=== PATIENT | male | born 1995 | race Caucasian/White ===

== ENCOUNTER 2019-08-11 09:46 | Emergency (ER) | payer OTHER, SELFPAY ==
[2019-08-11 09:52] VITALS: BP 158/86; PULSE 98; RESP 18; TEMP 37.3; O2SAT 99
--- NOTE | 2019-08-11 10:28 | ED.GENADULT ---
HPI - General Adult General Chief complaint: Unspecified Stated complaint: swollen uuvula x3 weeks Time Seen by Provider: 08/11/19 09:56 Source: patient Mode of arrival: ambulatory Limitations: no limitations History of Present Illness HPI narrative: Patient is a 24-year-old male who presents to emergency department for evaluation of sore throat for the last 3 weeks has been managed by primary care for this was given antibiotics with no improvement which she finished and is now on a steroid Dosepak. Patient notes aching pain in the throat worse with swallowing also notes some congestion and rhinorrhea. Patient denies fever nausea vomiting diarrhea presents in no distress Related Data Home Medications Medication Instructions Recorded Confirmed methylprednisolone mg 08/11/19 Allergies Allergy/AdvReac Type Severity Reaction Status Date / Time Penicillins Allergy Mild Unknown Verified 08/11/19 09:57 Review of Systems Review of Systems: All systems reviewed & are unremarkable except as noted in HPI and below PMFSH Past Medical History Medical History Patient denies significant medical history Social History Social History Smoking status: Current every day smoker Gender identity (if verbalized by the patient): Male Exam Narrative: Exam Narrative: GENERAL: Well-appearing, well-nourished, and in no acute distress. HEAD: Normocephalic, atraumatic. EYES: PERRLA and EOMI. ENT: Nares clear, no rhinorrhea or epistaxis. Mucous membranes moist. Oropharynx with tonsillar hypertrophy and exudate no exudate or other lesions. Uvula midline no trismus or drooling NECK: Supple. No adenopathy or masses. CHEST: Clear to auscultation. No respiratory distress. No wheezes rales or rhonchi HEART: Regular rate and rhythm. No murmur heard. EXTREMITIES: Normal range of motion. No edema. SKIN: Warm, dry, no rash. NEURO: No focal deficits. Alert and oriented x3. Cranial nerves II through XII grossly intact PSYCH: Normal mood and affect. Course Course Emergency Course: Patient in the room in no distress aware of case findings treatment plan and diagnosis agreeing to follow-up as directed or to return if symptoms worsen or concerns Vital Signs Vital signs: Vital Signs Temperature 99.2 F 08/11/19 09:52 Pulse Rate 98 08/11/19 09:52 Respiratory Rate 18 08/11/19 09:52 Blood Pressure 158/86 H 08/11/19 09:52 Pulse Oximetry 99 08/11/19 09:52 Temperature 99.2 F 08/11/19 09:52 Pulse Rate 98 08/11/19 09:52 Respiratory Rate 18 08/11/19 09:52 Blood Pressure 158/86 H 08/11/19 09:52 Pulse Oximetry 99 08/11/19 09:52 Medical Decision Making MDM Narrative Medical decision making narrative: Patient with pharyngitis negative strep with culture ordered will be referred to ENT for further evaluation Vital Signs Vital Signs: Vital Signs Temperature 99.2 F 08/11/19 09:52 Pulse Rate 98 08/11/19 09:52 Respiratory Rate 18 08/11/19 09:52 Blood Pressure 158/86 H 08/11/19 09:52 Pulse Oximetry 99 08/11/19 09:52 Temperature 99.2 F 08/11/19 09:52 Pulse Rate 98 08/11/19 09:52 Respiratory Rate 18 08/11/19 09:52 Blood Pressure 158/86 H 08/11/19 09:52 Pulse Oximetry 99 08/11/19 09:52 Lab Data Labs: Strep Screen Presumptive Negative *(Reference Range: Negative)* Discharge Plan Discharge Clinical Impression: Pharyngitis Patient Disposition: Home, Self-Care Condition: Stable Instructions: Antibiotic Form, Pharyngitis (ED) Additional Instructions: Follow up with your primary care provider within 1-2 days. Go to ER for shortness of breath, difficulty breathing, chest pain, fever/chills, weakness, nauseau/vomitting, unable to swallow or open the mouth etc. or any other concerns. Stay well-hydrated Take any prescribed medicatio
[2019-08-11] MEDS: KETOROLAC (*BKC) 60 MG/2 ML VIAL IM (10:30)
== END 2019-08-11 10:55 | disposition home or self-care (01) ==
PROVIDERS: Emergency Provider Emergency Medicine; PCP Emergency Medicine
DX: J02.9 Acute pharyngitis, unspecified (principal); F17.200 Nicotine dependence, unspecified, uncomplicated
CPT/HCPCS: 87081; 87880; 96372; 99283; J1885

== ENCOUNTER 2019-09-24 09:53 | Emergency (ER) | payer OTHER, SELFPAY ==
[2019-09-24 10:06] VITALS: BP 137/84; PULSE 84; RESP 16; TEMP 36.7; O2SAT 98
--- NOTE | 2019-09-24 11:02 | ED.GENADULT ---
HPI - General Adult General Chief complaint: Eye Problems Stated complaint: pos pink eye Time Seen by Provider: 09/24/19 10:52 Source: patient and RN notes reviewed Mode of arrival: ambulatory Limitations: no limitations History of Present Illness HPI narrative: Patient presents today complaining of bilateral eye redness, watering, and burning x3 days and has been worsening since onset. Girlfriend with similar symptoms prior to patient developing symptoms. Denies purulent drainage. Denies photophobia or vision changes. He has been using his girlfriend's sulfacetamide drops and states symptoms continue to worsen. Report that his girlfriend's symptoms are not improving with the drops either. MD complaint: eye redness and watering. Related Data Allergies Allergy/AdvReac Type Severity Reaction Status Date / Time Penicillins Allergy Mild Unknown Verified 08/11/19 09:57 Review of Systems Review of Systems: Narrative: CONSTITUTIONAL: Denies body aches, fever, chills, or sweats. EYES: + Eye redness, burning, and watering ENT: Denies rhinorrhea, congestion, sore throat, or otalgia. CARDIOVASCULAR: Denies chest pain, palpitations, or edema. RESPIRATORY: Denies cough or dyspnea. GASTROINTESTINAL: Denies abdominal pain, nausea, vomiting, or diarrhea. GENITOURINARY: Denies dysuria or hematuria. SKIN: Denies rash, itching, or wounds. MUSCULOSKELETAL: Denies back pain, joint pain, or myalgia. NEUROLOGIC: Denies headache, numbness, tingling, or weakness. PSYCH: Denies depression or anxiety. PMFSH Social History Social History Smoking status: Current every day smoker Gender identity (if verbalized by the patient): Male Comments At time of signature, I have reviewed and agree with nursing past medical, surgical, social and family history unless otherwise noted. Please see nursing chart for further information. There is no relevant family history pertinent to the presenting complaint Exam Narrative: Exam Narrative: GENERAL: Well-appearing, well-nourished, and in no acute distress. HEAD: Normocephalic, atraumatic. EYES: EOMI. PERRL. Severely injected conjunctiva bilaterally with increased tearing. Lids and lashes normal. ENT: Mucous membranes pink and moist. NECK: Normal AROM. Supple. No lymphadenopathy. CHEST: No respiratory distress. EXTREMITIES: Normal range of motion. No edema. SKIN: Warm, dry, no rash. Capillary refill normal. Normal skin turgor. NEURO: No focal deficits. Alert and oriented x3. Gait steady. PSYCH: Normal affect. No signs of depression or anxiety. Course Vital Signs Vital signs: Vital Signs Temperature 98.0 F 09/24/19 10:06 Pulse Rate 84 09/24/19 10:06 Respiratory Rate 16 09/24/19 10:06 Blood Pressure 137/84 09/24/19 10:06 Pulse Oximetry 98 09/24/19 10:06 Temperature 98.0 F 09/24/19 10:06 Pulse Rate 84 09/24/19 10:06 Respiratory Rate 16 09/24/19 10:06 Blood Pressure 137/84 09/24/19 10:06 Pulse Oximetry 98 09/24/19 10:06 Reviewed. Pt has been instructed to follow up with his PCP regarding his elevated blood pressure today. Medical Decision Making Differential Diagnosis Differential Diagnosis: Viral conjunctivitis, bacterial conjunctivitis, allergic conjunctivitis, stye, foreign body, corneal abrasion Vital Signs Vital Signs: Vital Signs Temperature 98.0 F 09/24/19 10:06 Pulse Rate 84 09/24/19 10:06 Respiratory Rate 16 09/24/19 10:06 Blood Pressure 137/84 09/24/19 10:06 Pulse Oximetry 98 09/24/19 10:06 Temperature 98.0 F 09/24/19 10:06 Pulse Rate 84 09/24/19 10:06 Respiratory Rate 16 09/24/19 10:06 Blood Pressure 137/84 09/24/19 10:06 Pulse Oximetry 98 09/24/19 10:06 Critical Care Time Critical Care Time Critical Care Time: No Discharge Plan Discharge Clinical Impression: Acute conjunctivitis, bilateral Qualifiers: Acute conjunctivitis type: unspe
== END 2019-09-24 11:15 | disposition home or self-care (01) ==
PROVIDERS: Emergency Provider Nurse Practitioner
DX: H10.33 Unspecified acute conjunctivitis, bilateral (principal); F17.200 Nicotine dependence, unspecified, uncomplicated
CPT/HCPCS: 99213; G0463

== ENCOUNTER 2019-09-28 23:04 | Emergency (ER) | payer OTHER, SELFPAY ==
[2019-09-28 23:11] VITALS: BP 155/79; PULSE 100; RESP 18; TEMP 37.2; O2SAT 96
--- NOTE | 2019-09-28 23:27 | ED.EYEPROB ---
HPI - Eye Problem General Chief complaint: Eye Problems Stated complaint: pink eye Time Seen by Provider: 09/28/19 23:19 Source: patient Mode of arrival: ambulatory Limitations: no limitations History of Present Illness HPI Narrative: This patient is 24 yo male who presents for evaluation of worsening conjunctivitis. PAtient states he developed right eye redness 6 days ago, and then he developed redness to his left eye. He was seen at [facility] 4 days ago and he was prescribed epinastine eye drops for conjunctivitis. He states his girlfriend had what appeared to be viral conjunctivitis prior to his symptoms but her redness has resolved. Patient states his right eye does not feel as bad, but he has burning pain to his left eye. He states it feels like he has sand paper in eye. Patient had nasal surgery 5 days ago and he just finish taking oral antibiotics. Related Data Allergies Allergy/AdvReac Type Severity Reaction Status Date / Time Penicillins Allergy Mild Unknown Verified 09/25/19 09:22 Review of Systems Constitutional: Constitutional: Denies chills Eyes: Eyes: Reports eye discharge, Reports irritation and Reports photophobia ENT: Denies dizziness and Denies sore throat [facility] Past Medical History Medical History (Updated 09/29/19 @ 01:46 by Sophia Wiseman MD) Patient denies significant medical history Surgical History Surgical History (Updated 09/28/19 @ 23:31 by Sophia Wiseman MD) S/P nasal surgery Social History Social History (System 09/25/19 @ 09:22 by Melody Blank) Smoking status: Current every day smoker Alcohol intake: current Gender identity (if verbalized by the patient): Male Exam Const: General: alert Orientation/consciousness: patient oriented x3 HENMT: Head: normocephalic and atraumatic Mouth: Yes Normal oral and palatal mucosa present and Yes lip normal Eyes: Conjunctivae: conjunctival abnormality bilateral conjunctival chemosis, conjunctival injection and discharge (watery) mucoid Pupils: Equal, round and reactive pupils present EOM: EOMs intact bilaterally Other: mild irritation along lid margins Neck: Neck: normal visual inspection Chest: Chest palpation & inspection: normal inspection of the chest Resp: Effort & Inspection: normal respiratory effort Neuro: General: patient oriented x3 and moves all extremities Extrem: General: normal to inspection Course Course Emergency Course: PAtient presents with bilateral conjunctivitis. He has been taking eye drops for allergic conjunctivitis. I have discussed with patient that he will be started on antibiotics eye drops and he will need to seen eye doctor. He is able to see although vision is blurry. He is able to describe what I look like and color I have on. Vital Signs Vital signs: Vital Signs Temperature 98.9 F 09/28/19 23:11 Pulse Rate 100 09/28/19 23:11 Respiratory Rate 18 09/28/19 23:11 Blood Pressure 155/79 H 09/28/19 23:11 Pulse Oximetry 96 09/28/19 23:11 Temperature 98.9 F 09/28/19 23:11 Pulse Rate 71 09/29/19 02:20 Respiratory Rate 18 09/29/19 02:20 Blood Pressure 140/75 09/29/19 02:20 Pulse Oximetry 97 09/29/19 02:20 Discharge Plan Discharge Clinical Impression: Acute conjunctivitis, bilateral Qualifiers: Acute conjunctivitis type: unspecified Qualified Code(s): H10.33 - Unspecified acute conjunctivitis, bilateral Patient Disposition: Home, Self-Care Condition: Stable Instructions: Antibiotic Form, Conjunctivitis (ED) Additional Instructions: Please call an industrial electrical technician or service operator tomorrow to get evaluated. Use antibiotics eye drops every 3 hours. Start taking allergy medication such as zyrtec or claritin. Use antificial tears eye drops through out the day. Prescriptions: New polymyxin B sulf-trimethoprim [Polytrim] 10,000 unit- 1 mg/mL drops 1 drop EACH EYE Q3H 7 Days RF: 0 No Action epinastin
--- NOTE | 2019-09-28 23:43 | PC.NURSE ---
When performing visual acuity patient states I can't, my left eye, is completely blurry, I can't make out anything, nothing.
--- NOTE | 2019-09-29 01:21 | PC.NURSE ---
This nurse contacted pharmacy and spoke with Jamshid in regards to patient's ordered eye drops. Jamshid stated he will have the eye drops ready soon.
[2019-09-29 02:20] VITALS: BP 140/75; PULSE 71; RESP 18; O2SAT 97
== END 2019-09-29 02:23 | disposition home or self-care (01) ==
PROVIDERS: Emergency Provider General Practice
DX: H10.33 Unspecified acute conjunctivitis, bilateral (principal); F17.200 Nicotine dependence, unspecified, uncomplicated
CPT/HCPCS: 99283; A9270

== ENCOUNTER 2019-12-31 10:48 | Emergency (ER) | payer OTHER, SELFPAY ==
[2019-12-31 11:03] VITALS: BP 143/85; PULSE 89; RESP 20; TEMP 36.6; O2SAT 97
--- NOTE | 2019-12-31 11:56 | ED.GENADULT ---
HPI - General Adult General Chief complaint: Wound/Laceration <Garret Esteves PA-C - Last Filed: 12/31/19 12:02> Stated complaint: left leg wound <Garret Esteves PA-C - Last Filed: 12/31/19 12:02> Time Seen by Provider: 12/31/19 11:07 <Garret Esteves PA-C - Last Filed: 12/31/19 12:02> Source: patient <JINNY Park Last Filed: 12/31/19 12:02> Mode of arrival: ambulatory <Garret Esteves PA-C - Last Filed: 12/31/19 12:02> Limitations: no limitations <JINNY Park Last Filed: 12/31/19 12:02> History of Present Illness HPI narrative: Patient is a 24-year-old male who presents to emergency department for evaluation of wound to the left knee that is been there for the last several days has been able to express purulent drainage from the knee notes aching pain worse with touch and activity patient denies fever chills nausea vomiting immunocompromise or similar occurrence in the past and on arrival is in the room in no distress resting comfortably <Garret Esteves PA-C - Last Filed: 12/31/19 12:02> Related Data Allergies/adverse reactions: Allergies Allergy/AdvReac Type Severity Reaction Status Date / Time Penicillins Allergy Mild Unknown Verified 12/31/19 11:07 <Garret Esteves PA-C - Last Filed: 12/31/19 12:02> Review of Systems Review of Systems: All systems reviewed & are unremarkable except as noted in HPI and below <Garret Esteves PA-C - Last Filed: 12/31/19 12:02> [facility] Past Medical History Medical History: Medical History Patient denies significant medical history <JINNY Park Last Filed: 12/31/19 12:02> Surgical History Surgical History: Surgical History S/P nasal surgery <JINNY Park Last Filed: 12/31/19 12:02> Social History Social History: Social History Smoking status: Current every day smoker Alcohol intake: current Gender identity (if verbalized by the patient): Male <Garret Esteves PA-C - Last Filed: 12/31/19 12:02> Exam Narrative: Exam Narrative: GENERAL: Well-appearing, well-nourished, and in no acute distress. HEAD: Normocephalic, atraumatic. EYES: PERRLA and EOMI. ENT: Nares clear, no rhinorrhea or epistaxis. Mucous membranes moist. EXTREMITIES: Normal range of motion. No edema. SKIN: Warm, dry, no rash. Patient with 2-1/2 cm red tender swollen lesion of the left knee with purulent drainage draining from the wound from the central opening no lymphangitic streaking NEURO: No focal deficits. Alert and oriented x3. Neurovascularly intact PSYCH: Normal mood and affect. <Garret Esteves PA-C - Last Filed: 12/31/19 12:02> Course Course Emergency Course: Patient in the room aware of case findings treatment plan and diagnosis wound culture obtained wound was cleaned. Patient with antibiotic ointment 4 x 4 and Coban placed post procedure <Garret Esteves PA-C - Last Filed: 12/31/19 12:02> Vital Signs Vital signs: Vital Signs Temperature 97.8 F 12/31/19 11:03 Pulse Rate 89 12/31/19 11:03 Respiratory Rate 20 12/31/19 11:03 Blood Pressure 143/85 H 12/31/19 11:03 Pulse Oximetry 97 12/31/19 11:03 Temperature 98.1 F 12/31/19 12:27 Pulse Rate 66 12/31/19 12:27 Respiratory Rate 20 12/31/19 12:27 Blood Pressure 128/80 12/31/19 12:27 Pulse Oximetry 99 12/31/19 12:27 <Garret Esteves PA-C - Last Filed: 12/31/19 12:02> Vital Signs Temperature 97.8 F 12/31/19 11:03 Pulse Rate 89 12/31/19 11:03 Respiratory Rate 20 12/31/19 11:03 Blood Pressure 143/85 H 12/31/19 11:03 Pulse Oximetry 97 12/31/19 11:03 Temperature 98.1 F 12/31/19 12:27 Pulse Rate 66 12/31/19 12:27 Respiratory Rate 20 12/31/19 12:27 Blood Pressu
[2019-12-31 12:27] VITALS: BP 128/80; PULSE 66; RESP 20; TEMP 36.7; O2SAT 99
== END 2019-12-31 12:28 | disposition home or self-care (01) ==
PROVIDERS: Emergency Provider General Practice; PCP Emergency Medicine
DX: L02.416 Cutaneous abscess of left lower limb (principal); F17.200 Nicotine dependence, unspecified, uncomplicated
CPT/HCPCS: 10060; 87070; 87075; 87147; 87186; 87205; 99283

== ENCOUNTER 2020-04-29 01:01 | Emergency (ER) | payer OTHER, SELFPAY ==
[2020-04-29] VITALS (22 sets, daily range): BP systolic 128–163; BP diastolic 74–101; PULSE 67–101; RESP 12–23; TEMP 37.4; O2SAT 93–100
--- NOTE | ~2020-04-29 | XR_ITS ---
EXAMINATION: XR femur RT min 2V DATE: 04/29/2020 02:22 INDICATION: Right thigh injury. TECHNIQUE: 2 views of right femur were obtained. COMPARISON: None. FINDINGS: Bone alignment is normal. No fracture. The right hip joint is normal. The right knee joint is not included. IMPRESSION: 1. No fracture. Reviewed, dictated and finalized at location A. PRESIDENT FIXED INCOME IMPRESSION: 1. No fracture.
--- NOTE | ~2020-04-29 | XR_ITS ---
EXAMINATION: XR knee RT 2V DATE: 04/29/2020 02:22 INDICATION: Right knee injury. TECHNIQUE: 2 views of right knee were obtained. COMPARISON: None. FINDINGS: There is a comminuted fracture involving medial tibial plateau and intercondylar eminence. There is approximately 8 mm depression of the articular surface. There is a small bone fragment adjac ent to lateral tibial plateau. There is no arthritis. There is a large lipohemarthrosis. IMPRESSION: 1. Comminuted fracture involving the medial tibial plateau and intercondylar eminence. 2. Bone fragment adjacent to the lateral tibial plateau, likely a Segond fracture. 3. Large lipohemarthrosis. Reviewed, dictated and finalized at location A. CURLER IMPRESSION: 1. Comminuted fracture involving the medial tibial plateau and intercondylar em inence. 2. Bone fragment adjacent to the lateral tibial plateau, likely a Segond fractu re. 3. Large lipohemarthrosis.
--- NOTE | ~2020-04-29 | XR_ITS ---
EXAMINATION: XR hip BI 2V w AP pelvis DATE: 04/29/2020 02:22 INDICATION: Pelvis injury. TECHNIQUE: An anteroposterior view of the pelvis and 2 views of right hip and 2 views of left hip on a total of 6 radiographs were obtained. COMPARISON: None. FINDINGS: Bone alignment is normal. No fracture. Joint spaces are well maintained. IMPRESSION: 1. Normal pelvis and hips. Reviewed, dictated and finalized at location A. UCT SAFETY LEAD IMPRESSION: 1. Normal pelvis and hips.
--- NOTE | ~2020-04-29 | XR_ITS ---
EXAMINATION: XR tibia fibula RT 2V DATE: 04/29/2020 02:22 INDICATION: Right lower leg injury. TECHNIQUE: 2 views of right tibia and fibula on 3 radiographs were obtained. COMPARISON: None. FINDINGS: There is a comminuted fracture involving the medial tibial plateau and intercondylar eminen ce. There is approximately 8 mm depression of the articular surface. There is a bone fragment overlyi ng lateral tibial plateau. There is no arthritis. IMPRESSION: 1. Comminuted fracture involving the medial tibial plateau and intercondylar eminence. 2. Bone fragment overlying lateral tibial plateau, which may be a Segond fracture. Reviewed, dictated and finalized at location A. ONTRACT MANAGER IMPRESSION: 1. Comminuted fracture involving the medial tibial plateau and intercondylar em inence. 2. Bone fragment overlying lateral tibial plateau, which may be a Segond fractu re.
--- NOTE | ~2020-04-29 | XR_ITS ---
EXAMINATION: XR chest 1V DATE: 04/29/2020 02:22 INDICATION: Trauma. TECHNIQUE: A single frontal view of the chest was obtained. COMPARISON: Chest 2 views 10/31/2018 FINDINGS: The chest demonstrates clear lungs without pneumonia, pleural effusion, or pneumothorax. Th e heart size is normal. IMPRESSION: 1. No acute cardiopulmonary disease. Reviewed, dictated and finalized at location A. ER DEPARTMENT MANAGER
--- NOTE | ~2020-04-29 | XR_ITS ---
EXAMINATION: XR ankle RT 2V DATE: 04/29/2020 02:22 INDICATION: Right ankle injury. TECHNIQUE: 2 views of right ankle were obtained. COMPARISON: None. FINDINGS: Sensitivity is decreased by the nonstandard patient positioning. Bone alignment is normal. No fracture. Joint spaces are well maintained. IMPRESSION: 1. No fracture. Reviewed, dictated and finalized at location A. S IMPRESSION: 1. No fracture.
--- NOTE | 2020-04-29 00:58 | ED.EXTPRO ---
HPI - Extremity Problem General Chief complaint: Extremity Injury, Lower Stated complaint: hamstring pain Source: patient and EMS Mode of arrival: EMS Limitations: intoxication History of Present Illness HPI Narrative: Patient is a 24-year-old male who presents via EMS for evaluation of right lower extremity pain. Patient is quite intoxicated at the time of assessment, reported to EMS that he had twisted his knee, causing him to have extreme knee pain and hamstring pain for which she is unable to ambulate. Patient was found lying outside of the house of his ex fiancee intoxicated. Patient transferred to our facility, continues to endorse that he twisted his knee injuring it. He denies any trauma to his head, chest, thorax. He denies being assaulted. Patient is reporting severe pain with movement in the right lower extremity. Patient reports drinking alcohol this evening. Patient denies other drug use. He denies head trauma or loss of consciousness. He denies vision changes, nausea or vomiting. Denies chest pain or shortness of breath. No recent illnesses. Related Data Home Medications Medication Instructions Recorded Confirmed No Home Medications 04/29/20 Allergies Allergy/AdvReac Type Severity Reaction Status Date / Time Penicillins Allergy Mild Difficulty Verified 04/29/20 01:14 Breathing pollen extracts Allergy Mild Difficulty Verified 04/29/20 01:14 Breathing Review of Systems Review of Systems: Narrative: CONSTITUTIONAL: Denies fever, chills, or sweats. EYES: Denies visual changes ENT: Denies rhinorrhea, congestion, sore throat, or otalgia. CARDIOVASCULAR: Denies chest pain, palpitations, or edema. RESPIRATORY: Denies cough or dyspnea. GASTROINTESTINAL: Denies abdominal pain, nausea, vomiting GENITOURINARY: Denies dysuria or hematuria. SKIN: Denies rash or itching. MUSCULOSKELETAL: Denies back pain, reports right-sided leg pain, right knee pain, right lower leg pain NEUROLOGIC: Denies headache, numbness, or weakness. [facility] Past Medical History Medical History (Updated 04/29/20 @ 02:28 by Jen Mayorga MD) Patient denies significant medical history Surgical History Surgical History S/P nasal surgery Family History Family History (System 09/25/19 @ 09:22 by Melody Blank) Other Diabetes mellitus Family history of cardiovascular disease Family history of malignant neoplasm Hypertension Social History Social History (Updated 04/29/20 @ 01:12 by Jen Mayorga MD) Smoking status: Current every day smoker Alcohol intake: current Substance use: current Substance use type: marijuana Gender identity (if verbalized by the patient): Male Sexual Orientation (if Verbalized by the Patient): Straight or Heterosexual Exam Narrative: Exam Narrative: Nursing note and vitals reviewed. CONSTITUTIONAL: The patient appears well-developed and well-nourished. He is intoxicated. HEAD: Normocephalic and abrasion to the nasal bridge. No laceration. EYES: 2+ PERRL, EOMI, normal conjunctiva, anicteric EARS: External ears clear bilaterally, no hemotympanum MOUTH: OP clear, no erythema, exudates NECK: midline trachea, supple, FROM. No midline cervical spinal tenderness. CARDIOVASCULAR: Normal rate, regular rhythm, normal heart sounds and intact distal pulses. No murmurs, rubs, gallops. PULMONARY: Effort normal and breath sounds normal. No respiratory distress. The patient has no wheezes, rales, ronchi.No chest wall tenderness, crepitus or ecchymoses. ABDOMINAL: Soft. Nontender, nondistended. No palpable masses EXTREMITIES:: moving all extremities symmetrically. -RUE: No deformity. Normal ROM at shoulder, elbow, wrist, and hand. Sensation intact M/U/R. Pulse 2+. -LUE: No deformity. Normal ROM at shoulder, elbow, wrist, and hand., Sensation intact M/U/R. Pulse 2+ -RLE: Deformity inferior to the right knee. Tenderness, effu
[2020-04-29 01:36] LABS: Basophils Absolute Auto 0.2 K/mm3 (0.0-0.1); Eosinophils Percent Auto 0.1 % (0-4.4); Hematocrit 43.4 % (42.0-52.0); Immature Granulocyte Absolute 0.02 K/mm3 (0.00-0.031); Immature Granulocyte Percent A 0.3 % (0-0.5); Lymphocytes Absolute Auto 2.18 K/mm3 (0.9-3.2); Lymphocytes Percent Auto 28.8 % (18.3-44.2); Mean Corpuscular HGB Conc 34.6 g/dl (32-36); Mean Corpuscular Hemoglobin 30.7 pg (26-34); Mean Corpuscular Volume 88.8 fl (80-100); Mean Platelet Volume 8.7 fl (7.4-10.4); Monocytes Absolute Auto 0.4 K/mm3 (0.1-0.6); Monocytes Percent Auto 5.3 % (2.6-8.5); Neutrophils Absolute Auto 4.8 K/mm3 (1.3-6.7); Neutrophils Percent Auto 63.5 % (45.5-73.1); Platelet Count Result 310 k/mm3 (150-375); Red Blood Count 4.89 M/mm3 (4.6-6.20); Red Cell Distribution Width 12.5 % (11.5-14.5); White Blood Count 7.6 K/mm3 (4.5-10.0)
[2020-04-29 01:43] LABS: Alanine Aminotransferase 21 U/L (4-50); Albumin Level 4.8 g/dL (3.5-5.1); Alkaline Phosphatase 58 U/L (38-126); Anion Gap 15 mmol/L (8-16); Aspartate Amino Transferase 29 U/L (17-59); Bilirubin,Total 0.3 mg/dL (0.2-1.3); Blood Urea Nitrogen 12 mg/dL (9-20); Calcium 9.1 mg/dL (8.4-10.2); Carbon Dioxide 23 mmol/L (22-30); Chloride 104 mmol/L (98-107); Estimated CRCL calculation 109 ml/min; Estimated Glomerular Filt Rate > 60; Glucose 119 mg/dL (75-110); Potassium 3.3 mmol/L (3.4-5.0); Sodium 142 mmol/L (137-145)
[2020-04-29 01:44] LABS: Ethanol 218 mg/dL (<10)
[2020-04-29] MEDS: TETANUS,DIPHTHERIA,AC PERTUSSIS ADULT (0.5 ML) BOOSTRIX IM (02:14)
[2020-04-29] MEDS: ONDANSETRON INJ 4 MG/2 ML VIAL IV PUSH (02:15)
[2020-04-29] MEDS: MORPHINE SULFATE (*CRX) 4 MG/ML INJ IV PUSH (02:15)
[2020-04-29] MEDS: SODIUM CHLORIDE 0.9% IV 1,000 ML 999 ML IV CONT (02:16)
[2020-04-29 02:27] LABS: INR 0.9; Prothrombin Time 13.2 Seconds (11.1-14.7)
[2020-04-29 02:28] LABS: Partial Thromboplastin Time 27.5 SECONDS (22.3-36.8)
--- NOTE | 2020-04-29 03:18 | PC.NURSE ---
Pt splint applied by 2 RN and ERP at this time.
--- NOTE | 2020-04-29 03:19 | PC.NURSE ---
[facility] was contacted at [address] [facility], [facility] estimated transfer time at [phone] to [phone]
--- NOTE | 2020-04-29 03:35 | PC.NURSE ---
PT. ambulance moved to ETA [id number]
[2020-04-29 03:38] LABS: Amphetamine Screen Urine Negative (Negative); Barbiturate Screen Urine Negative (Negative); Benzodiazepines Screen Urine Negative (Negative); Cannabinoid Screen Urine Positive (Negative); Cocaine Screen Urine Negative (Negative); Methadone Screen Urine Negative (Negative); Opiate Screen Urine Positive (Negative); Phencyclidine Screen Urine Negative (Negative)
[2020-04-29 03:39] LABS: Add Urine Microscopic? NO; Appearance Urine Clear (Clear); Bilirubin Urine Negative (Negative); Blood Urine Negative (Negative); Color Urine Colorless (Yellow); Glucose Urine UA Negative (Negative); Ketones Urine Negative (Negative); Leukocyte Esterase Ur Negative LEU/UL (Negative); Nitrate Urine Negative (Negative); Protein Urine Negative (Negative); RBC Urine 0-2 /hpf (0-2); Specific Grav Ur 1.006 (1.001-1.035); Urobilinogen Urine Negative mg/dL (<2.0); WBC Urine 0-3 /hpf
--- NOTE | 2020-04-29 04:08 | PC.NURSE ---
RN report given to Victoria oliveros [facility] .
--- NOTE | 2020-04-29 04:14 | PC.NURSE ---
RN report given to [facility] LERMA at this time. Pt has 18g sliv left ac, 2 pt belongings bags on stretcher with pt. Posterior long leg splint in place. no distress noted at time of transfer.
== END 2020-04-29 04:17 | disposition short-term general hospital (02) ==
PROVIDERS: Emergency Provider Emergency Medicine
DX: S82.141A Displaced bicondylar fracture of right tibia, initial encounter for closed fracture (principal); F17.200 Nicotine dependence, unspecified, uncomplicated; X50.1XXA Overexertion from prolonged static or awkward postures, initial encounter; Z23 Encounter for immunization
CPT/HCPCS: 36415; 71045; 73521; 73552; 73560; 73590; 73600; 80053; 80307; 81003; 85025; 85610; 85730; 90471; 90715; 96361; 96374; 96375; 99285; J2270; J2405; J7030

== ENCOUNTER 2020-06-21 14:50 | Emergency (ER) | payer OTHER, SELFPAY ==
[2020-06-21 15:03] VITALS: BP 115/89; PULSE 87; RESP 16; TEMP 36.9; O2SAT 100
--- NOTE | 2020-06-21 15:04 | ED.DENTAL ---
HPI - Dental/Oral General Chief complaint: Dental/Oral Stated complaint: Tooth Pain Time Seen by Provider: 06/21/20 15:04 Source: patient Mode of arrival: ambulatory Limitations: no limitations History of Present Illness HPI Narrative: Larry Orellana is a 25 yo male with no PMH comes here with left lower molar pain x2 days, states that pain has worsened to 7 out of 10, difficulty writing down, hard to brush teeth, tooth 17 is painful when smoking also. No nausea vomiting diarrhea. He has no dentist; has leg injury to right hamstring, walking with a cane Related Data Home Medications Medication Instructions Recorded Confirmed tramadol mg 06/21/20 Allergies Allergy/AdvReac Type Severity Reaction Status Date / Time Penicillins Allergy Mild Difficulty Verified 04/29/20 01:14 Breathing pollen extracts Allergy Mild Difficulty Verified 04/29/20 01:14 Breathing Review of Systems Review of Systems: Narrative: CONSTITUTIONAL: Denies fever, chills, sweats. EYES: Denies visual changes, redness, discharge. ENT: Denies rhinorrhea, congestion, sore throat, otalgia.L molar pain CARDIOVASCULAR: Denies chest pain, palpitations, edema. RESPIRATORY: Denies dyspnea, wheezing, cough GASTROINTESTINAL: Denies abdominal pain, nausea, vomiting, diarrhea. GENITOURINARY: Denies dysuria, hematuria, abnormal discharge SKIN: Denies rash or itching. NEUROLOGIC: Denies numbness, or focal weakness. PSYCHIATRIC: Denies anxiety or depression. Right hamstring injury with limping PMFSH Past Medical History Medical History (Updated 06/21/20 @ 15:21 by Neena Patino CNP) Patient denies significant medical history Surgical History Surgical History S/P nasal surgery Family History Family History Other Diabetes mellitus Family history of cardiovascular disease Family history of malignant neoplasm Hypertension Social History Social History Smoking status: Current every day smoker Alcohol intake: current Substance use: current Substance use type: marijuana Gender identity (if verbalized by the patient): Male Comments At time of signature, I agree with nursing past medical, surgical, social and family history. There is no relevant family history pertinent to the presenting complaint. Exam Narrative: Exam Narrative: GENERAL: This is a well-nourished, well-developed patient, in moderate distress. HEAD: normocephalic, atraumatic. EYES: Sclera clear/white. Vision is grossly intact. EARS: External ears normal. Hearing grossly intact. NOSE: External nose normal without nasal discharge, nares without redness, no rhinorrhea. THROAT: Mucous membranes moist, left lower gum swelling with edge of tooth in edemic gum, tender to touch (tooth 17) NECK: Neck supple, non-tender CARDIOVASCULAR: Regular rate and rhythm without murmurs, gallops, or rubs. RESPIRATORY: Clear to auscultation. Breath sounds equal bilaterally. No wheezes, rales, or rhonchi. GASTROINTESTINAL: Abdomen soft, SKIN: warm, intact with no suspicious lesions or rash, good texture and turgor. NEURO: awake, alert, and oriented to person, place and time. There were no obvious focal neurologic abnormalities. Steady gait EXTREMITIES: Normal range of motion. BACK: Nontender without deformity Course Course Emergency Course: Patient has tooth pain that started 2 days ago Is currently taking tramadol for leg pain cautioned not to mix both medications together will give pain medication for mouth and limited quantity Patient started on clindamycin as he has a penicillin allergy again recommended taking food with antibiotic and taking food if uses ibuprofen R Naprosyn in addition to other pain medications for pain Vital Signs Vital signs: Vital Signs Temperature 98.4 F 06/21/20 15:03 Pulse Rate 87
== END 2020-06-21 15:34 | disposition home or self-care (01) ==
PROVIDERS: Emergency Provider Nurse Practitioner; PCP Emergency Medicine
DX: K04.7 Periapical abscess without sinus (principal); F17.200 Nicotine dependence, unspecified, uncomplicated
CPT/HCPCS: 99213; G0463

== ENCOUNTER 2020-06-22 18:48 | Emergency (ER) | payer OTHER, SELFPAY ==
[2020-06-22 18:59] VITALS: BP 137/81; PULSE 73; RESP 16; TEMP 36.5; O2SAT 99
--- NOTE | 2020-06-22 19:35 | ED.DENTAL ---
HPI - Dental/Oral General Chief complaint: Dental/Oral Stated complaint: wisdom tooth all messed up Time Seen by Provider: 06/22/20 19:05 Source: patient Mode of arrival: ambulatory Limitations: no limitations History of Present Illness HPI Narrative: Patient is a 25-year-old male who presents to emergency department for evaluation of left lower posterior dental pain patient was seen at urgent care placed on hydrocodone and antibiotics which she has been taking patient notes mild aching pain patient notes is worse with eating denies fever chills nausea vomiting or URI symptom Related Data Home Medications Medication Instructions Recorded Confirmed tramadol mg 06/21/20 Allergies Allergy/AdvReac Type Severity Reaction Status Date / Time pollen extracts Allergy Mild Difficulty Verified 06/22/20 19:03 Breathing Penicillins AdvReac Intermediate Dizziness Verified 06/22/20 19:03 Review of Systems Review of Systems: All systems reviewed & are unremarkable except as noted in HPI and below PMFSH Past Medical History Medical History (Updated 06/22/20 @ 19:38 by Garret Esteves PA-C) Patient denies significant medical history Surgical History Surgical History S/P nasal surgery Family History Family History Other Diabetes mellitus Family history of cardiovascular disease Family history of malignant neoplasm Hypertension Social History Social History Smoking status: Current every day smoker Alcohol intake: current Substance use: current Substance use type: marijuana Gender identity (if verbalized by the patient): Male Exam Narrative: Exam Narrative: GENERAL: Well-appearing, well-nourished, and in no acute distress. HEAD: Normocephalic, atraumatic. EYES: PERRLA and EOMI. ENT: Nares clear, no rhinorrhea or epistaxis. Mucous membranes moist. Patient with decay in the left lower posterior molar no swelling of the gumline floor the mouth is soft no trismus or drooling no facial swelling CHEST: Clear to auscultation. No respiratory distress. No wheezes rales or rhonchi HEART: Regular rate and rhythm. No murmur heard. SKIN: Warm, dry, no rash. NEURO: No focal deficits. Alert and oriented x3. PSYCH: Normal mood and affect. Course Course Emergency Course: Patient will have medications in addition to what he is currently taking afebrile nontoxic-appearing felt appropriate for discharge home Vital Signs Vital signs: Vital Signs Temperature 97.7 F 06/22/20 18:59 Pulse Rate 73 06/22/20 18:59 Respiratory Rate 16 06/22/20 18:59 Blood Pressure 137/81 06/22/20 18:59 Pulse Oximetry 99 06/22/20 18:59 Temperature 97.7 F 06/22/20 18:59 Pulse Rate 73 06/22/20 18:59 Respiratory Rate 16 06/22/20 18:59 Blood Pressure 137/81 06/22/20 18:59 Pulse Oximetry 99 06/22/20 18:59 MDM - Dental/Oral MDM Narrative Medical decision making narrative: Paitents pain and complaint coupled with physical findings are consistant with dentalgia. There are no focal signs of space occupying lesions that are compromising to the ariway. The floor of the mouth is soft with no signs of Ludwigs Angina. Patient is without trismus or drooling and able to swallow secreations. Patient is felt appropriate for discharge home with dental follow up. Discharge Plan Discharge Clinical Impression: Dental abscess Patient Disposition: Home, Self-Care Condition: Stable Instructions: Antibiotic Form, Dental Abscess (ED) Additional Instructions: Follow-up with dentistry in the next 7 days for reevaluation Return if symptoms worsen or concerns or any increase in redness swelling pain fever over 100.5 or inability to open the mouth or swallow Stay well-hydrated Only take medications as directed Prescriptions: New chlorhex
[2020-06-22] MEDS: KETOROLAC (*BKC) 60 MG/2 ML VIAL 30 MG IM (19:42)
== END 2020-06-22 19:52 | disposition home or self-care (01) ==
PROVIDERS: Emergency Provider Emergency Medicine; PCP Emergency Medicine
DX: K04.7 Periapical abscess without sinus (principal); F17.200 Nicotine dependence, unspecified, uncomplicated
CPT/HCPCS: 96372; 99283; J1885

== ENCOUNTER 2020-06-29 23:38 | Emergency (ER) | payer OTHER, SELFPAY ==
[2020-06-29 23:42] VITALS: BP 176/80; PULSE 78; RESP 16; TEMP 36.2; O2SAT 98
--- NOTE | 2020-06-30 00:11 | ED.DENTAL ---
HPI - Dental/Oral General Chief complaint: Dental/Oral Stated complaint: pretty sure i have dry socket Time Seen by Provider: 06/30/20 00:01 Source: patient Mode of arrival: ambulatory Limitations: no limitations History of Present Illness HPI Narrative: Patient is 25 years old white male status post left lower wisdom tooth extraction 2 days ago. Came complaining of pain at the site of extraction. Started yesterday. Patient suspecting dry socket. Patient been smoking since the procedure.. Patient denies any fever, chills, nausea, vomiting, headache, trouble swallowing. Trouble to open his mouth widely Related Data Home Medications Medication Instructions Recorded Confirmed tramadol mg 06/21/20 Allergies Allergy/AdvReac Type Severity Reaction Status Date / Time pollen extracts Allergy Mild Difficulty Verified 06/22/20 19:03 Breathing Penicillins AdvReac Intermediate Dizziness Verified 06/22/20 19:03 Review of Systems Review of Systems: Narrative: CONSTITUTIONAL: Denies fever, chills, or sweats. EYES: Denies visual changes, redness, or discharge. ENT: Denies rhinorrhea, congestion, sore throat, or otalgia. CARDIOVASCULAR: Denies chest pain, palpitations, or edema. RESPIRATORY: Denies cough or dyspnea. GASTROINTESTINAL: Denies abdominal pain, nausea, vomiting, or diarrhea. GENITOURINARY: Denies dysuria or hematuria. SKIN: Denies rash or itching. MUSCULOSKELETAL: Denies back pain, joint pain, or myalgia. NEUROLOGIC: Denies headache, numbness, or weakness. PSYCHIATRIC: Denies anxiety or depression. [facility] Past Medical History Medical History Patient denies significant medical history Surgical History Surgical History S/P nasal surgery Family History Family History Other Diabetes mellitus Family history of cardiovascular disease Family history of malignant neoplasm Hypertension Social History Social History Smoking status: Current every day smoker Alcohol intake: current Substance use: current Substance use type: marijuana Gender identity (if verbalized by the patient): Male Exam Narrative: Exam Narrative: General appearance: Well-developed, well-nourished Skin: Normal color Head: Normocephalic, nontraumatic Eyes: Clear conjunctiva ENT: Patient unable to open his mouth more than 1-1/2 cm. Facial exam showed no swelling or localized tenderness. Neck: Supple, nontender Chest and respiratory: Airway patent, no respiratory distress, no accessory muscle use Heart: Regular rate/rhythm Neurologic: Alert and oriented ?3, AUTOMATIC COIN MACHINE MECHANIC is normal as tested, no gross motor deficit Course Course Emergency Course: Stable Vital Signs Vital signs: Vital Signs Temperature 36.2 C L 06/29/20 23:42 Pulse Rate 78 06/29/20 23:42 Respiratory Rate 16 06/29/20 23:42 Blood Pressure 176/80 H 06/29/20 23:42 Pulse Oximetry 98 06/29/20 23:42 Temperature 36.2 C L 06/29/20 23:42 Pulse Rate 78 06/29/20 23:42 Respiratory Rate 16 06/29/20 23:42 Blood Pressure 176/80 H 06/29/20 23:42 Pulse Oximetry 98 06/29/20 23:42 MDM - Dental/Oral MDM Narrative Medical decision making narrative: Possible dry socket. Ibuprofen 600, Valentine 7.5/325 mg, Zofran 4 mg orally ordered. Patient was advised to follow-up with his dentist today. Critical Care Time Critical Care Time Critical Care Time: No Discharge Plan Discharge Clinical Impression: Dry tooth socket Patient Disposition: Home, Self-Care
[2020-06-30] MEDS: IBUPROFEN 600 MG TABLET PO (00:17)
[2020-06-30] MEDS: HYDROcodone/acetaminophen (*CRX) 7.5-325 MG TABLET 1 TAB PO (00:17)
[2020-06-30] MEDS: ONDANSETRON HCL ODT 4 MG TABLET PO (00:20)
== END 2020-06-30 00:25 | disposition home or self-care (01) ==
PROVIDERS: Emergency Provider Emergency Medicine; PCP Emergency Medicine
DX: M27.3 Alveolitis of jaws (principal); F17.200 Nicotine dependence, unspecified, uncomplicated
CPT/HCPCS: 99283; A9270

== ENCOUNTER 2021-06-11 04:39 | Emergency (ER) | payer OTHER, SELFPAY ==
--- NOTE | ~2021-06-11 | CT_ITS ---
EXAMINATION: CT abdomen pelvis w con EXAM DATE: 06/11/2021 06:59 INDICATION: RLQ pain . TECHNIQUE: Spiral CT of the abdomen and pelvis was performed following intravenous injection of 100 m L Omnipaque 350. Axial, coronal and sagittal images of the abdomen and pelvis were reviewed. The do se-length product (DLP) for this examination was 369.40 mGy-cm. The exposure was tailored according to patient size (auto mA exposure control), and iterative reconstruction (ASIR) was used as additiona l dose reduction technique. Not identified FINDINGS: The liver, spleen, adrenal glands and pancreas are unremarkable. Gallbladder is unremarkab le. No biliary obstruction. Portal and splenic veins are patent. Kidneys enhance symmetrically. T here is no hydronephrosis. The prostate is unremarkable. The bladder is unremarkable. There is no retroperitoneal or pelvic lymphadenopathy. Probable identification of a normal appendix. No pericecal inflammation. The stomach and small chasity l are unremarkable. There is expected amount of colonic stool. No free intraperitoneal gas. The heart is normal in size. There are no pericardial or pleural effusions. The lung bases are unremark able. There are no osteoblastic or osteolytic lesions identified. IMPRESSION: No acute intra-abdominal findings. Reviewed, dictated and finalized at location A. N WINDER
[2021-06-11 04:44] VITALS: BP 131/73; PULSE 64; RESP 18; TEMP 36.1; O2SAT 100
[2021-06-11 05:35] LABS: Basophils Absolute Auto 0.1 K/mm3 (0.0-0.1); Basophils Percent Auto 1.2 % (0.2-1.2); Eosinophils Absolute Auto 0.1 K/mm3 (0-0.3); Eosinophils Percent Auto 1.3 % (0-4.4); Hematocrit 46.5 % (42.0-52.0); Hemoglobin 15.9 g/dL (14.0-18.0); Immature Granulocyte Absolute 0.02 K/mm3 (0.00-0.031); Immature Granulocyte Percent A 0.2 % (0-0.5); Lymphocytes Absolute Auto 2.05 K/mm3 (0.9-3.2); Lymphocytes Percent Auto 19.8 % (18.3-44.2); Mean Corpuscular HGB Conc 34.2 g/dl (32-36); Mean Corpuscular Hemoglobin 31.1 pg (26-34); Mean Platelet Volume 9.1 fl (7.4-10.4); Monocytes Absolute Auto 0.9 K/mm3 (0.1-0.6); Monocytes Percent Auto 8.8 % (2.6-8.5); Neutrophils Absolute Auto 7.1 K/mm3 (1.3-6.7); Neutrophils Percent Auto 68.7 % (45.5-73.1); Platelet Count Result 265 k/mm3 (150-375); Red Blood Count 5.11 M/mm3 (4.6-6.20); Red Cell Distribution Width 12.6 % (11.5-14.5); White Blood Count 10.3 K/mm3 (4.5-10.0)
[2021-06-11 05:41] VITALS: BP 138/76; PULSE 63; RESP 18; TEMP 36.3; O2SAT 98
[2021-06-11 05:49] LABS: Alanine Aminotransferase 18 U/L (4-50); Albumin Level 4.4 g/dL (3.5-5.1); Alkaline Phosphatase 63 U/L (38-126); Anion Gap 7 mmol/L (8-16); Aspartate Amino Transferase 21 U/L (17-59); Bilirubin,Total 0.3 mg/dL (0.2-1.3); Blood Urea Nitrogen 18 mg/dL (9-20); Calcium 9.3 mg/dL (8.4-10.2); Carbon Dioxide 24 mmol/L (22-30); Chloride 106 mmol/L (98-107); Estimated CRCL calculation 115 ml/min; Estimated Glomerular Filt Rate > 60; Glucose 115 mg/dL (65-110); Lipase 119 U/L (23-300); Sodium 137 mmol/L (137-145)
[2021-06-11] MEDS: ONDANSETRON INJ 4 MG/2 ML VIAL IV PUSH (06:39)
[2021-06-11] MEDS: MORPHINE SULFATE (*CRX) 4 MG/ML INJ IV PUSH (06:40)
[2021-06-11 07:24] VITALS: BP 128/75; PULSE 48; RESP 18; O2SAT 97
--- NOTE | 2021-06-11 07:25 | ED.ABDPAIN ---
HPI - Abdominal Pain General Chief Complaint: Abdominal Pain Stated Complaint: abd pain Time Seen by Provider: 06/11/21 04:53 History of Present Illness HPI narrative: Patient is a 25-year-old male who presents ER with epigastric pain. Began this evening. Concerned it may be related to straining a muscle at the gym. Cramping in nature and radiates down into his lower abdomen. No fevers or chills or sweats. No diarrhea. Attempted taking meloxicam without relief. No urinary symptoms. Associate with nausea but no vomiting. Related Data Home Medications Medication Instructions Recorded Confirmed tramadol mg 06/21/20 Allergies Allergy/AdvReac Type Severity Reaction Status Date / Time pollen extracts Allergy Mild Difficulty Verified 06/11/21 05:45 Breathing Penicillins AdvReac Intermediate Dizziness Verified 06/11/21 05:45 Review of Systems Review of Systems: All systems reviewed & are unremarkable except as noted in HPI and below Constitutional: Constitutional: Denies chills, Denies fever(s) and Denies weakness Cardiovascular: Cardiovascular: Denies chest pain and Denies radiating jaw, neck or arm pain Respiratory: Respiratory: Denies cough and Denies dyspnea Gastrointestinal: Gastrointestinal: Reports abdominal pain, Reports bloating, Denies diarrhea, Reports nausea and Denies vomiting Genitourinary: Genitourinary: Denies dysuria, Denies urinary frequency and Denies urinary incontinence [facility] Past Medical History Medical History (Updated 06/11/21 @ 07:31 by Mahamed Mahan MD) Patient denies significant medical history Surgical History Surgical History S/P nasal surgery Family History Family History Other Diabetes mellitus Family history of cardiovascular disease Family history of malignant neoplasm Hypertension Social History Social History Smoking status: Current every day smoker Alcohol intake: current Substance use: current Substance use type: marijuana Gender identity (if verbalized by the patient): Male Sexual Orientation (if Verbalized by the Patient): Straight or Heterosexual Exam Narrative: GENERAL: Uncomfortable-appearing, well-nourished, and in no acute distress. HEAD: Normocephalic, atraumatic. ENT: Mucous membranes moist. CHEST: Clear to auscultation. No respiratory distress. HEART: Regular rate and rhythm. Normal peripheral pulses. ABDOMEN: Soft, moderate tenderness in right upper quadrant and right lower quadrant, no McBurney's point tenderness, nondistended. EXTREMITIES: Normal range of motion. No edema. SKIN: Warm, dry, no rash. NEURO: Alert and oriented x3. PSYCH: Normal mood and affect. Course Course Emergency Course: Patient informed results. Pain improved with morphine and nausea improved with Zofran. Repeat exam of the abdomen reveals no focal tenderness. Vital Signs Vital signs: Vital Signs Temperature 97 F L 06/11/21 04:44 Pulse Rate 64 06/11/21 04:44 Respiratory Rate 18 06/11/21 04:44 Blood Pressure 131/73 06/11/21 04:44 Pulse Oximetry 100 06/11/21 04:44 Temperature 97.4 F L 06/11/21 05:41 Pulse Rate 46 L 06/11/21 07:24 Respiratory Rate 18 06/11/21 07:24 Blood Pressure 128/75 06/11/21 07:24 Pulse Oximetry 97 06/11/21 07:24 MDM - Abdominal Pain Lab Data Result diagrams: 06/11/21 05:20 06/11/21 05:20 Labs: Lab Results 06/11/21 06/11/21 Range/Units 05:20 05:20 WBC 10.3 H (4.5-10.0) K/mm3 RBC 5.11 (4.6-6.20) M/mm3 Hgb 15.9 (14.0-18.0) g/dL Hct 46.5 (42.0-52.0) % MCV 91.0 (80-100) fl MCH 31.1 (26-34) pg MCHC 34.2 (32-36) g/dl RDW 12.6 (11.5-14.5) % Plt Count 265 (150-375) k/mm3 MPV 9.1 (7.4-10.4) fl Immature Gran % (Auto) 0.2 (0-0.5) % Neut % (Auto) 68.7
== END 2021-06-11 08:07 | disposition home or self-care (01) ==
PROVIDERS: Emergency Provider Emergency Medicine; PCP Family Medicine
DX: R10.13 Epigastric pain (principal); F17.200 Nicotine dependence, unspecified, uncomplicated
CPT/HCPCS: 36415; 74177; 80053; 83690; 85025; 96374; 96375; 99284; J2270; J2405; Q9967

== ENCOUNTER 2021-07-07 23:29 | Emergency (ER) | payer OTHER, SELFPAY ==
--- NOTE | ~2021-07-07 | CT_ITS ---
EXAMINATION: CT abdomen pelvis w con EXAM DATE: 07/08/2021 01:43 INDICATION: Lower Abd Pain X 2 Days. TECHNIQUE: Spiral CT of the abdomen and pelvis was performed following intravenous injection of 100 m L Omnipaque 350. Axial, coronal and sagittal images of the abdomen and pelvis were reviewed. The do se-length product (DLP) for this examination was 329.20 mGy-cm. The exposure was tailored according to patient size (auto mA exposure control), and iterative reconstruction (ASIR) was used as additiona l dose reduction technique. Comparison is made to prior examination from 06/11/2021. FINDINGS: The liver, spleen, adrenal glands and pancreas are unremarkable. The gallbladder is contr acted but otherwise unremarkable. Portal and splenic veins are patent. Kidneys enhance symmetricall y. There is no hydronephrosis. The prostate is unremarkable. The bladder is unremarkable. There is no retroperitoneal or pelvic lymphadenopathy. There are no findings to suggest appendicitis. The stomach and small bowel are unremarkable. There is moderate amount of colonic stool. No free intraperitoneal gas. The heart is normal in size. T here are no pericardial or pleural effusions. The lung bases are unremarkable. There are no osteobl astic or osteolytic lesions identified. IMPRESSION: No acute intra-abdominal findings. Reviewed, dictated and finalized at location A. ONAL CLIMATE CHANGE ANALYST
[2021-07-07 23:39] VITALS: BP 131/89; PULSE 67; RESP 18; TEMP 37; O2SAT 99
--- NOTE | 2021-07-08 00:37 | ED.ABDPAIN ---
HPI - Abdominal Pain General Chief Complaint: Abdominal Pain Stated Complaint: abdominal pain Time Seen by Provider: 07/08/21 00:30 Source: patient Mode of arrival: ambulatory Limitations: no limitations History of Present Illness HPI narrative: Patient presents with intermittent lower abdominal pain for the last 2 days. Patient also complaining of hemorrhoids which got worse over the last 2 days. Patient denies any rectal bleeding, fever, chills, nausea or vomiting. Related Data Home Medications Medication Instructions Recorded Confirmed tramadol mg 06/21/20 Allergies Allergy/AdvReac Type Severity Reaction Status Date / Time pollen extracts Allergy Mild Difficulty Verified 07/07/21 23:44 Breathing Penicillins AdvReac Intermediate Dizziness Verified 07/07/21 23:44 Review of Systems Review of Systems: CONSTITUTIONAL: Denies fever, chills, or sweats. EYES: Denies visual changes, redness, or discharge. ENT: Denies rhinorrhea, congestion, sore throat, or otalgia. CARDIOVASCULAR: Denies chest pain, palpitations, or edema. RESPIRATORY: Denies cough or dyspnea. GASTROINTESTINAL: Denies abdominal pain, nausea, vomiting, or diarrhea. GENITOURINARY: Denies dysuria or hematuria. SKIN: Denies rash or itching. MUSCULOSKELETAL: Denies back pain, joint pain, or myalgia. NEUROLOGIC: Denies headache, numbness, or weakness. PSYCHIATRIC: Denies anxiety or depression. PMFSH Past Medical History Medical History (Updated 07/08/21 @ 02:23 by Bay Wisdom MD) Patient denies significant medical history Surgical History Surgical History S/P nasal surgery Family History Family History Other Diabetes mellitus Family history of cardiovascular disease Family history of malignant neoplasm Hypertension Social History Social History Smoking status: Current every day smoker Alcohol intake: current Substance use: current Substance use type: marijuana Gender identity (if verbalized by the patient): Male Sexual Orientation (if Verbalized by the Patient): Straight or Heterosexual Exam Narrative: General appearance: Well-developed, well-nourished Skin: Normal color Head: Normocephalic, nontraumatic Eyes: Clear conjunctiva ENT: Oropharynx normal, ears normal, nose normal Neck: Supple, nontender Chest and respiratory: Airway patent, no respiratory distress, no accessory muscle use Heart: Regular rate/rhythm Abdomen: Soft, suprapubic tenderness, no organomegaly, quiet bowel sounds, internal hemorrhoids, no bluish discoloration, tender, no bleeding Vascular: Normal peripheral pulses, normal capillary refill. Musculoskeletal: Normal range of motion, nontender back Neurologic: Alert and oriented ?3, RECONCILIATION ANALYST is normal as tested, no gross motor deficit Course Course Emergency Course: Stable Vital Signs Vital signs: Vital Signs Temperature 37.0 C 07/07/21 23:39 Pulse Rate 67 07/07/21 23:39 Respiratory Rate 18 07/07/21 23:39 Blood Pressure 131/89 07/07/21 23:39 Pulse Oximetry 99 07/07/21 23:39 Temperature 37.0 C 07/07/21 23:39 Pulse Rate 55 L 07/08/21 01:01 Respiratory Rate 27 H 07/08/21 01:01 Blood Pressure 107/76 07/08/21 01:01 Pulse Oximetry 98 07/08/21 01:01 MDM - Abdominal Pain MDM Narrative Medical decision making narrative: Patient presents with abdominal pain and hemorrhoids Differential Diagnosis Differential diagnosis: Likely abdominal pain, acute appendicitis, constipation, diverticulitis and pancreatitis Lab Data Result diagrams:
[2021-07-08 00:48] VITALS: BP 125/75; PULSE 47; RESP 20; O2SAT 100
[2021-07-08 01:01] VITALS: BP 107/76; PULSE 55; RESP 27; O2SAT 98
[2021-07-08 01:06] LABS: Basophils Absolute Auto 0.1 K/mm3 (0.0-0.1); Basophils Percent Auto 1.6 % (0.2-1.2); Eosinophils Absolute Auto 0.1 K/mm3 (0-0.3); Eosinophils Percent Auto 1.5 % (0-4.4); Hematocrit 41.1 % (42.0-52.0); Hemoglobin 14.2 g/dL (14.0-18.0); Immature Granulocyte Absolute 0.01 K/mm3 (0.00-0.031); Immature Granulocyte Percent A 0.1 % (0-0.5); Lymphocytes Absolute Auto 3.83 K/mm3 (0.9-3.2); Lymphocytes Percent Auto 43.5 % (18.3-44.2); Mean Corpuscular HGB Conc 34.5 g/dl (32-36); Mean Corpuscular Hemoglobin 31.3 pg (26-34); Mean Corpuscular Volume 90.5 fl (80-100); Mean Platelet Volume 8.8 fl (7.4-10.4); Monocytes Absolute Auto 0.7 K/mm3 (0.1-0.6); Monocytes Percent Auto 7.7 % (2.6-8.5); Neutrophils Percent Auto 45.6 % (45.5-73.1); Platelet Count Result 251 k/mm3 (150-375); Red Blood Count 4.54 M/mm3 (4.6-6.20); Red Cell Distribution Width 12.5 % (11.5-14.5); White Blood Count 8.8 K/mm3 (4.5-10.0)
[2021-07-08 01:09] LABS: Add Urine Microscopic? NO; Appearance Urine Clear (Clear); Bilirubin Urine Negative (Negative); Blood Urine Negative (Negative); Color Urine Yellow (Yellow); Glucose Urine UA Negative (Negative); Ketones Urine Negative (Negative); Leukocyte Esterase Ur Negative LEU/UL (Negative); Nitrate Urine Negative (Negative); Protein Urine Negative (Negative); Specific Grav Ur 1.017 (1.001-1.035); Urobilinogen Urine Negative mg/dL (<2.0)
[2021-07-08 01:18] LABS: Alanine Aminotransferase 14 U/L (4-50); Albumin Level 3.8 g/dL (3.5-5.1); Alkaline Phosphatase 45 U/L (38-126); Anion Gap 7 mmol/L (8-16); Aspartate Amino Transferase 19 U/L (17-59); Bilirubin,Total 0.3 mg/dL (0.2-1.3); Blood Urea Nitrogen 13 mg/dL (9-20); Calcium 9.3 mg/dL (8.4-10.2); Carbon Dioxide 28 mmol/L (22-30); Chloride 104 mmol/L (98-107); Estimated CRCL calculation 114 ml/min; Estimated Glomerular Filt Rate > 60; Glucose 105 mg/dL (65-110); Lipase 97 U/L (23-300); Potassium 3.6 mmol/L (3.4-5.0); Sodium 139 mmol/L (137-145)
[2021-07-08] MEDS: SODIUM CHLORIDE 0.9% IV 1,000 ML 999 ML IV CONT (01:22)
[2021-07-08] MEDS: ONDANSETRON INJ 4 MG/2 ML VIAL IV PUSH (02:34)
[2021-07-08] MEDS: MORPHINE SULFATE (*CRX) 4 MG/ML INJ IV PUSH (02:34)
[2021-07-08 03:10] VITALS: BP 121/81; PULSE 59; RESP 16; O2SAT 99
== END 2021-07-08 03:10 | disposition home or self-care (01) ==
PROVIDERS: Emergency Provider Emergency Medicine; PCP Family Medicine
DX: K52.9 Noninfective gastroenteritis and colitis, unspecified (principal); K64.9 Unspecified hemorrhoids; F17.200 Nicotine dependence, unspecified, uncomplicated
CPT/HCPCS: 36415; 74177; 80053; 81003; 83690; 85025; 96361; 96374; 96375; 99284; J2270; J2405; J7030; Q9967

== ENCOUNTER 2021-09-08 18:27 | Emergency (ER) | payer OTHER, SELFPAY ==
[2021-09-08 18:57] VITALS: BP 139/63; PULSE 85; RESP 18; TEMP 36.6; O2SAT 98
--- NOTE | 2021-09-08 21:45 | PC.NURSE ---
Patient called at this time without answer. patient not in waiting room at this time.
--- NOTE | 2021-09-08 21:52 | PC.NURSE ---
Pt called for VS at this time, no response.
== END 2021-09-08 21:52 | disposition left against medical advice (07) ==
LOC: ANHED 22:00
PROVIDERS: PCP Family Medicine
DX: R35.0 Frequency of micturition (principal)
CPT/HCPCS: 99199

== ENCOUNTER 2022-03-18 15:17 | Emergency (ER) | payer OTHER, SELFPAY ==
[2022-03-18 15:25] VITALS: BP 110/67; PULSE 67; RESP 16; TEMP 36.3; O2SAT 97
--- NOTE | 2022-03-18 15:53 | ED.MALEGU ---
HPI - Male Genitourinary General Chief complaint: Urogenital-Male Stated complaint: STD Test Time Seen by Provider: 03/18/22 15:55 Source: patient and RN notes reviewed Mode of arrival: ambulatory Limitations: no limitations History of Present Illness HPI Narrative: 26-year-old male presents to the [facility] with complaints of discharge and burning with urination this morning. No other symptoms at this time. Reports symptoms have cleared. Denies abdominal pain, nausea, vomiting. States he tried calling his primary care provider and was told to come be evaluated. Related Data Home Medications Medication Instructions Recorded Confirmed No Home Medications 03/18/22 03/18/22 Allergies Allergy/AdvReac Type Severity Reaction Status Date / Time pollen extracts Allergy Mild Difficulty Verified 03/18/22 15:54 Breathing Penicillins AdvReac Intermediate Dizziness Verified 03/18/22 15:54 Review of Systems Review of Systems: All systems reviewed & are unremarkable except as noted in HPI and below Constitutional: Constitutional: Reports no additional constitutional complaints, Denies chills and Denies fever(s) Eyes: Eyes: Reports no additional eye complaints ENT: Reports system reviewed and no additional complaints, except as documented Cardiovascular: Cardiovascular: Reports no additional cardiovascular complaints Respiratory: Respiratory: Reports no additional respiratory complaints Gastrointestinal: Gastrointestinal: Reports no additional gastrointestinal complaints Genitourinary: Genitourinary: Reports as per HPI Musculoskeletal: Musculoskeletal: Reports no additional musculoskeletal complaints Integumentary/Breasts: Skin/Breast: Reports system reviewed and no additional complaints, except as docu Neurologic: Reports system reviewed and no additional complaints, except as documented Psychiatric: Psychiatric: Reports no additional psychiatric complaints Allergic/Immunologic: Allergic/Immunologic: Reports no additional allergic/immunologic complaints [facility] Past Medical History Medical History Patient denies significant medical history Surgical History Surgical History S/P nasal surgery Family History Family History Other Diabetes mellitus Family history of cardiovascular disease Family history of malignant neoplasm Hypertension Social History Social History Smoking status: Current every day smoker Alcohol intake: current Substance use: current Substance use type: marijuana Gender identity (if verbalized by the patient): Male Sexual Orientation (if Verbalized by the Patient): Straight or Heterosexual Comments At the time of my signature, I reviewed and agree with the nursing past medical, surgical, social, and family history. There is no relevant family history pertinent to the patient complaint. Exam Const: General: healthy appearing, no acute distress, alert and well nourished Nutritional Appearance: well nourished Orientation/consciousness: patient oriented x3 Limitations: no limitations HENMT: Head: normal to inspection Ears: external ears normal Eyes: General: appearance normal, both eyes and all related structures Pupils: Equal, round and reactive pupils present Neck: Neck: normal visual inspection, no lymphadenopathy and no meningeal signs Chest: Chest palpation & inspection: normal inspection of the chest Resp: Effort & Inspection: normal respiratory effort and no use of accessory muscles Auscultation: clear to auscultation bilaterally, no crackles, no rales, no rhonchi and no wheezes Cardio: Rate: regular rate Rhythm: regular rhythm GI: GI Palp: Yes Soft to palpation and No Tenderness to palpation present (GI) : Male General Exam: Ye
== END 2022-03-18 16:19 | disposition home or self-care (01) ==
PROVIDERS: Emergency Provider Nurse Practitioner; PCP Family Medicine
DX: Z20.2 Contact with and (suspected) exposure to infections with a predominantly sexual mode of transmission (principal); F17.200 Nicotine dependence, unspecified, uncomplicated
CPT/HCPCS: 87491; 87591; 87661; 99213; G0463

== ENCOUNTER 2022-05-20 09:21 | Emergency (ER) | payer OTHER, SELFPAY ==
[2022-05-20 09:25] VITALS: BP 135/77; PULSE 87; RESP 16; TEMP 36.3; O2SAT 100
--- NOTE | 2022-05-20 09:41 | ED.MALEGU ---
HPI - Male Genitourinary General Chief complaint: Urogenital-Male Stated complaint: REQUESTS STD CHECK Time Seen by Provider: 05/20/22 09:24 History of Present Illness HPI Narrative: 26-year-old male no medical problems presents to the emergency room for evaluation of dysuria. Patient states that he recently began having unprotected sex with a new partner and has been experiencing dysuria and clear penile drainage. Patient denies any testicular pain, abdominal pain or lower back pain. Denies fevers. Denies rashes, masses or ulcerations Related Data Allergies Allergy/AdvReac Type Severity Reaction Status Date / Time pollen extracts Allergy Mild Difficulty Verified 05/20/22 09:35 Breathing Penicillins AdvReac Intermediate Dizziness Verified 05/20/22 09:35 Review of Systems Review of Systems: CONSTITUTIONAL: Denies fever, chills, or sweats. EYES: Denies visual changes, redness, or discharge. ENT: Denies rhinorrhea, congestion, sore throat, or otalgia. CARDIOVASCULAR: Denies chest pain, palpitations, or edema. RESPIRATORY: Denies cough or dyspnea. GASTROINTESTINAL: Denies abdominal pain, nausea, vomiting, or diarrhea. GENITOURINARY: Reports dysuria and penile discharge SKIN: Denies rash or itching. MUSCULOSKELETAL: Denies back pain, joint pain, or myalgia. NEUROLOGIC: Denies headache, numbness, dizziness, or weakness. PSYCHIATRIC: Denies anxiety or depression. [facility] Past Medical History Medical History (Updated 05/20/22 @ 10:10 by Rm Vora APRN) Patient denies significant medical history Surgical History Surgical History S/P nasal surgery Family History Family History Other Diabetes mellitus Family history of cardiovascular disease Family history of malignant neoplasm Hypertension Social History Social History Smoking status: Current every day smoker Alcohol intake: current Substance use: current Substance use type: marijuana Gender identity (if verbalized by the patient): Male Sexual Orientation (if Verbalized by the Patient): Straight or Heterosexual Exam Narrative: GENERAL: Well-appearing, well-nourished, no physical limitations, and in no acute distress. HEAD: Normocephalic, atraumatic. EYES: Conjunctivae normal, PERRLA and EOMI. CHEST: Clear to auscultation. No respiratory distress. No wheezes rales or rhonchi. HEART: Regular rate and rhythm. No murmur heard. Normal peripheral pulses. ABDOMEN: Soft, nontender, nondistended, normal active bowel sounds. : Normal external male/female exam. BACK: No CVA tenderness EXTREMITIES: Normal range of motion. No edema. No clubbing or cyanosis SKIN: Warm, dry, no rash. No noted wounds NEURO: No focal deficits. Alert and oriented x3. MAEW. CN's II-XI intact bilaterally, normal gait PSYCH: Cooperative. Normal mood and affect. Course Vital Signs Vital signs: Vital Signs Temperature 36.3 C L 05/20/22 09:25 Pulse Rate 87 05/20/22 09:25 Respiratory Rate 16 05/20/22 09:25 Blood Pressure 135/77 05/20/22 09:25 Pulse Oximetry 100 05/20/22 09:25 Oxygen Delivery Room Air 05/20/22 09:25 Temperature 36.3 C L 05/20/22 09:25 Pulse Rate 87 05/20/22 09:25 Respiratory Rate 16 05/20/22 09:25 Blood Pressure 135/77 05/20/22 09:25 Pulse Oximetry 100 05/20/22 09:25 Oxygen Delivery Room Air 05/20/22 09:25 MDM - Male Genitourinary Lab Data Labs: Lab Results 05/20/22 Range/Units 09:40 Urine Color Yellow (Yellow) Urine Appearance Clear (Clear) Urine pH 7.0 (5.0-9.0) Ur Specific Dawson 1.020 (1.001-1.035) Urine Protein Negative (Negative) mg/dL Urine Glucose (UA) Negative (Negative) mg/dL Urine Ketones Negative (Negative) mg/dL Ur Blood (Man) Negative (Negative) Urine Nitrate Negative (Negative)
[2022-05-20 10:02] LABS: Appearance Urine Clear (Clear); Bilirubin Urine Negative (Negative); Blood Urine Negative (Negative); Color Urine Yellow (Yellow); Glucose Urine UA Negative (Negative); Ketones Urine Negative (Negative); Leukocyte Esterase Ur Negative LEU/UL (Negative); Nitrate Urine Negative (Negative); Protein Urine Negative (Negative); Urobilinogen Urine 0.2 mg/dL (<2.0)
[2022-05-20 10:19] LABS: Add Urine Microscopic? NO
[2022-05-20] MEDS: cefTRIAXone 1 GM VIAL 0.5 GM IM (10:44)
[2022-05-20] MEDS: metroNIDAZOLE 250 MG TABLET 2000 MG PO (10:45)
[2022-05-20] MEDS: LIDOCAINE HCL 1% LOCAL INJ 20 ML VIAL (10:48)
== END 2022-05-20 10:50 | disposition home or self-care (01) ==
LOC: ANHED 10:18
PROVIDERS: Emergency Provider Nurse Practitioner Family; PCP Family Medicine
DX: R30.0 Dysuria (principal); Z20.2 Contact with and (suspected) exposure to infections with a predominantly sexual mode of transmission; Z72.51 High risk heterosexual behavior; F17.200 Nicotine dependence, unspecified, uncomplicated
CPT/HCPCS: 81003; 96372; 99283; A9270; J0696

== ENCOUNTER 2024-05-06 06:04 | Emergency (ER) | payer BC, MEDICAID, SELFPAY ==
[2024-05-06 06:08] VITALS: BP 153/68; PULSE 73; RESP 16; O2SAT 100
[2024-05-06 06:12] VITALS: TEMP 36.7
--- NOTE | 2024-05-06 06:16 | ED.URI ---
HPI - URI/Sore Throat General Chief Complaint: Upper Respiratory Infection Stated Complaint: uri Time Seen by Provider: 05/06/24 06:15 History of Present Illness HPI Narrative: 28-year-old male with no pertinent past medical history presents to the emergency room with chief complaint of sinus pressure sinus frontal headache and some postnasal dripping ear pain. States that he woke up with the sinus pressure headache but is but also bothering him for several days. Has been taking Benadryl and Tylenol without any relief of symptoms. No expectorants, nasal sprays or any pseudoephedrine. No injuries or recent illnesses. No fever or chills. He is otherwise in his normal state of health. Denies any difficulty breathing or chest pain, no nausea or vomiting. No sick contacts but states that he feels like he got an illness while in the sauna. Related Data Allergies Allergy/AdvReac Type Severity Reaction Status Date / Time pollen extracts Allergy Mild Difficulty Verified 05/20/22 09:35 Breathing Penicillins AdvReac Intermediate Dizziness Verified 05/20/22 09:35 Review of Systems Review of Systems: As reviewed above in HPI [facility] Past Medical History Medical History (Updated 05/06/24 @ 06:23 by Slim Gomes MD) Patient denies significant medical history Surgical History Surgical History S/P nasal surgery Family History Family History Other Diabetes mellitus Family history of cardiovascular disease Family history of malignant neoplasm Hypertension Social History Social History Smoking status: Current every day smoker Alcohol intake: current Substance use: current Substance use type: marijuana Gender identity (if verbalized by the patient): Male Sexual Orientation (if Verbalized by the Patient): Straight or Heterosexual Exam Narrative: GENERAL: [Well-appearing, well-nourished, and in no acute distress.] HEAD: [Normocephalic, atraumatic.] EYES: [PERRLA and EOMI.] ENT: nares are clear bilaterally, no rhinorrhea or epistaxis, posterior mucous membranes in the oropharynx do appear little irritated with some postnasal drip but no tonsillar enlargement or erythema. Uvula is midline. Sounds very congested. No tenderness with palpation over the maxillary or frontal sinuses. NECK: Supple. CHEST: [Clear to auscultation. No respiratory distress.] HEART: [Regular rate and rhythm]. No murmur heard. [Normal peripheral pulses.] ABDOMEN: [Soft, nondistended], [nontender], [No rigidity or guarding] EXTREMITIES: Normal range of motion. [No edema.] SKIN: Warm, dry, no rash. NEURO: [No focal deficits]. Alert and oriented [x3.] PSYCH: [Normal mood and affect.] Course Vital Signs Vital signs: Vital Signs Pulse Rate 73 05/06/24 06:08 Respiratory Rate 16 05/06/24 06:08 Blood Pressure 153/68 H 05/06/24 06:08 Pulse Oximetry 100 05/06/24 06:08 Oxygen Delivery Room Air 05/06/24 06:08 Temperature 36.7 C 05/06/24 06:12 Pulse Rate 73 05/06/24 06:08 Respiratory Rate 16 05/06/24 06:08 Blood Pressure 153/68 H 05/06/24 06:08 Pulse Oximetry 100 05/06/24 06:08 Oxygen Delivery Room Air 05/06/24 06:08 MDM - URI/Sore Throat MDM Narrative Medical decision making narrative: 28-year-old otherwise healthy appearing male presents to the emergency room with chief complaint of upper respiratory infection symptoms including sinus pressure and sinus frontal headache, ear pain postnasal drip and headache. He is afebrile here with normal reassuring vital signs aside from some stable hypertension. No fever, hypoxia and he is breathing comfortably. He does sound congested does have evidence of postnasal drip and likely sinus symptoms of a viral sinusitis versus viral upper respiratory infection. No red flag symptoms including fever or any dysphonia or dysphagia. Will treat him symptomatically with a dose of pseudoephedrine as well as Afrin for his nasal congestion and nasal symptoms. No indications or role for antibiotics at this time given his examination findings and vitals. COVID fluid RSV swabs were obtained to make sure that there is no concomitant infection and patient will be stable for discharge home with prescription medications for the above. Differential Diagnosis Differential diagnosis: Likely upper respiratory infection, otitis media, sinusitis, viral infection, influenza and pharyngitis Medical Records Attestation: I reviewed the patient's medical records. Lab Data Labs: Lab Results 05/06/24 Range/Units 06:12 Influenza A (RT-PCR) Pending Influenza B (RT-PCR) Pending RSV (RT-PCR) Pending SARS-CoV-2 RNA (RT-PCR) Pending Discharge Plan Discharge Clinical Impression: Upper respiratory infection, Sinusitis, Viral infection Patient Disposition: Home, Self-Care Condition: Stable Instructions: Antibiotic Form, Sinusitis (ED), Upper Respiratory Infection (DC), Viral Syndrome (ED) Additional Instructions: Your symptoms are very consistent with an upper respiratory infection and viral sinusitis. We have given your prescription medications Afrin, Mucinex, and Flonase for congestion symptoms. Do not use the Afrin nasal spray for more than 3 days as it becomes less effective and could actually cause rebound increased congestion. You can buy Pseudoephedrine behind the counter at your pharmacy. Follow-up with your primary care provider outpatient. Prescriptions: New fluticasone propionate [Allergy Relief (fluticasone)] 50 mcg/actuation spray,suspension 1 spray intranasal Q12H Qty: 16 0RF Rx Instructions: administer into each nostril guaifenesin [Mucinex] 1,200 mg tablet extended release 12hr 1,200 mg PO Q12H Qty: 20 0RF No Action doxycycline hyclate 100 mg capsule 100 mg PO DAILY 7 Days Qty: 7 0RF Follow-up/Referrals: Toña,Raymond Shultz MD [Primary Care Provider] - Time of Disposition: 06:59
[2024-05-06] MEDS: PSEUDOEPHEDRINE HCL 30 MG TABLET 60 MG PO (06:28)
[2024-05-06] MEDS: OXYMETAZOLINE HCL 0.05% NAS 15 ML BTL (*BKC) 2 SPRAY NASAL (06:28)
[2024-05-06 07:00] LABS: Influenza A QL RT-PCR Negative (Negative); Influenza B QL RT-PCR Negative (Negative); RSV RNA, RT-PCR Negative (Negative); SARS-CoV-2 RNA PCR Positive (Negative)
== END 2024-05-06 07:09 | disposition home or self-care (01) ==
LOC: ANHED 06:30
PROVIDERS: Emergency Provider Student in an Organized Health Care Education/Training Program; PCP Family Medicine
DX: J06.9 Acute upper respiratory infection, unspecified (principal); J32.9 Chronic sinusitis, unspecified; B97.89 Other viral agents as the cause of diseases classified elsewhere; Z20.822 Contact with and (suspected) exposure to COVID-19; F17.200 Nicotine dependence, unspecified, uncomplicated
CPT/HCPCS: 87637; 99283; A9270

== ENCOUNTER 2024-12-12 15:00 | Emergency (ER) | payer SELFPAY ==
[2024-12-12 15:03] VITALS: BP 131/87; PULSE 94; RESP 16; TEMP 36.9; O2SAT 97
--- OUTSIDE RECORDS SUMMARY | 2024-12-12 15:04 | XMS_ITS | Data Portability ---
Author Organization [place] - [facility] OFFICE Address [address] [place] [address] Care Team Providers Care Converter Operator Name Role Phone KARINA JARA Primary Care Provider [phone] Assessment Encounter Date Assessment Date Assessment LastModified by Organization Details LastModified Time 12/11/2018 12/11/2018 Elizabeth Dey PA-C reviewed thoroughly past medical history, ER visit, discussed findings and assessment and plan with patient. Also discussed above with Dr. Ribeiro who agreed with the a/p, patient expressed understanding. The following interventions were recommended: heart healthy low-fat, low-sodium diet, avoid strenuous exercise pending completion of cardiovascular evaluation, maintain appropriate weight, continue current medications, and medical follow-up as noted. [email or web address] Not available 12/11/2018 21:51:20 Plan of Treatment Reminders Order Date Submit Date Provider Last Modified By Organization Details Last Modified Time Details Appointments None recorded. Lab None recorded. Referral None recorded. Procedures None recorded. Surgeries None recorded. Imaging electrocard iogram 2018 019 HEATHER Not available 9 13:33:59 Medication Orders None recorded. Patient TargetsNo targets recorded. Patient Instructions Encounter Date Encounter Id Patient Instructions Last Modified By Organization Details Last Modified Time 12/11/2018 [id number] chest pain: care instructions [email or web address] Not available 12/11/2018 21:51:30 Reason for Referral None Reported. Results Created Date Observation Date Name Description Value Unit Range Abnormal Flag Note LastModifiedBy Organization Detail LastModifiedTime 12/16/19 19 10/31/2018 elect pedro perez am No observ ation record ed. [email or web address] Not Available 12/15 13:33:35 12/16/19 19 12/11/2018 elect juveshannon chris am No observ ation record ed. [email or web address] Jesus Hope MD [address], [place], [address], 12/15/2018 13:34:14 12/20/19 19 10/15/2018 elect pedro chris am No observ ation record ed. [email or web address] Jesus Hope MD [address], [place], [address], 12/19/2018 16:10:34 12/20/19 19 10/31/2018 XR, chest , 2 view No observ ation record ed. Not Available 12/19 16:38:00 Result Notes None recorded. Problems Name Problem SNOMED Code Status Onset Date Resolution Date Notes Provider Name and Address Organization Details Recorded Time Heart disease 93022375 Completed 201812/11/2018 All on the mother and grandmoth er side of the family;al 12/11/18 Marie Sorto null, [place] - [facility] 9 16:21:31 Dyspnea 906808869 Active 2018 Marie Allenr null, [place] - [facility] 9 16:21:39 Flutteri ng heart 086608720 Active 2018 Marie Allenr null, [place] - [facility] 9 16:21:47 Chest pain 52041491 Active 2018 Marie Allenr null, [place] - [facility] 9 16:21:52 Problem Notes None recorded. Medical Equipment None Reported. Allergies Allergen ID Allergen Name Allergen Category Reaction Reaction Severity Criticality Documentation Date Start Date Code Code System Note Provider Name and Address Organization Details Recorded Time 8456 Product containin g penicilli n (product) medicatio n Not available Not available Not available 12/11/2018 11395 8001 SNOMED Marie Allenr null, [place] - [facility] 9 16:19:03 Medications Name Sig Start Date Stop Date Status Note LastModified by Organization Details LastModified Time famotidine 20 mg tablet active Not Available Not Available No t Available montelukast 10 mg tablet active Not Available Not Available No t Available Zoloft 25 mg tablet Take 1 tablet every day by oral route as directed . active NOT TAKIN G;AL 9 Not Available Not Available Not Available doxycycline hyclate 100 mg tablet active Not Available Not Available Not Available azithromycin 1 gram oral packet active Not Available Not Available Not Available ProAir HFA 90 mcg/actuation aerosol inhaler active Not Available Not Available Not Available Vitals Date Recorded Body weight Body mass index (BMI) Body height Heart rate Oxygen saturation Oxygen saturation in Arterial blood by Pulse oximetry Systolic blood pressure Diastolic blood pressure Provider Name and Address Organization Details Last Updated DateTime 9 89057.6 3 g 24.4 kg/m2 182.88 cm 100 /min 94 % 94 % 128 mm[Hg] 90 mm[Hg] Marie Macario [facility] 9 16:18:53 Social History Question Answer Notes LastModified by [employer] Details LastModified Time Tobacco Smoking Status Former Smoker 1ppd Not Available [facility] 04/15/2020 03:30:41 What Was The Date Of Your Most Recent Tobacco Screening? 12/11/2018 [id number] Information not available 04/15/2020 How Many Years Have You Smoked Tobacco? 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 Family History Relationship Description Onset Age of this Age Resolved Age Notes LastModified by Organization Details LastModified Time Unspecified Relation Heart disease [email or web address] Not available 2018 16:09:46 Unspecified Relation Myocardial infarction [email or web address] Not available 12/11 16:09:43 Unspecified Relation Diabetes mellitus [email or web address] Not available 2018 16:09:38 Unspecified Relation Hypertensive disorder [email or web address] Not available 2018 16:09:55 Unspecified Relation Cerebrovascu lar accident [email or web address] Not available 06/2018 16:10:06 Medical History No medical history recorded. Past Encounters Encounter ID Performer Location Encounter Start Date Encounter Closed Date Diagnosis/Indication Diagnosis SNOMED-CT Code Diagnosis ICD10 Code Diagnosis Note [id number] Giancarlo Ribeiro MD [facility] OFF[facility] [place] [address] 12/11/2018 16:15:03 12/11/2018 21:51:35 Chest pain 62604221 R07.2 Patient presents with chest pain with atypical features. Given the history, exam findings and high cardiac risk factors, I feel additional investigat ion is warranted. I have made arrangemen ts in the near future for an exercise stress echocardio gram to evaluate for any ischemia, structural heart disease, or exercise induced arrythmia. The procedure was discussed with the patient, and risks, benefits, and alternativ e options were explained. Appropriat e labwork has not been performed recently, therefore I have made arrangemen ts for further testing: FLP. I have asked the patient to curtail exercise and activities until our investigat ion is complete. I have made the following adjustment s to the present medical regimen. Stress echo scheduled Fluttering heart 4191028 04 R00.2 Obtain 24 hour Holter. Mass of left breast 1224 752273 2525538 N63.20 Fibrocysti c disease vs nodule recommend discussing with PCP for surgery consult vs U/S left breast, no adenopathy Health Concerns Section Related Observation LastModified by Organization Detai ls LastModified Time None Recorded Concern Status LastModified by Organization Details LastModified Time None Recorded Advance Directives Directive None Recorded Payers Insurance Date Sequence Insurance Name Policy Number Policy Alcantar Covered Member ID Alcantar Member ID Guarantor Name 12/12/2018 1 [place] [employer] Larry Orellana [id number] Larry Orellana 01/19/2019 1 [facility] PRIOR TO 12/11/2020 (MEDICAID REPLACEMENT - HMO) Larry Orellana [id number] Larry Orellana Notes Date Note Type Note Provider Name and Address Organization Details Recorded Time 12/11/2018 text/html 12/11/18 23 year-old man with history of chest pain, increased alcohol use, marijuana use, GERD, recent ER visit for STD treatment, presents for cardiac consultation with a chief complaint of chest pain. Chest pain at times is associated with breathing, but does not have SOB at rest, some CLIFFORD, no diaphoresis, no orthopnea, Comes and goes, can happen at any time, non specific, might occur at any time. Has h/o GERD aggravated by ETOH and pizza. Does not have syncope or near syncope, some dizziness non specific may be related to the heat, no edema, No known history of coronary artery disease. No history of previous myocardial infarction. No history of heart failure. No known valvular heart disease. No known arrhythmia. Has never had a heart work up at a cardiology office. Has a PCP. But he is also here due to a breast mass. noted 3-4 weeks ago and is tender, no w/u for that. No nipple discharge, no injury. Admits to previous cocaine use 2 x / week for 3 years, none for 3 months, Also marijuana and ETOH case per heavy weekend. See ROS. Patient is active, but is not exercising regularly. No arm pain No arm pain. No neck pain. No nausea and vomiting. No diaphoresis. No shortness of breath at rest. No dyspnea on exertion. No fatigue.No orthopnea. No PND. No leg swelling. No palpitation. No dizziness. No syncope . No pre-syncope. No claudication. No major bleeding events. No side effects from medications. Complete ROS negative except as stated in the HPI and ROS. Results from this visit, or from the past: EKG 12-11-18 : NSR 81 no acute changes EK10/31/18 Sinus bradycardia. TOMMY Wilks - [facility] 12/11/2018 21:51:33
--- OUTSIDE RECORDS SUMMARY | 2024-12-12 15:04 | XMS_ITS | Referral Summary ---
Author Organization [facility] Address [address] [place] [address] Care Team Providers Care Copy Reader Name Role Phone Raymond Ding MD Primary Care Provider Allergies Active Allergy Reactions Criticality Noted Date Comments Penicillins Dizziness Low 04/29/2020 Medications famotidine (PEPCID) 40 mg tabletIndication s:Gastroesophage al reflux disease, unspecified whether esophagitis present Take 1 tablet (40 mg total) by mouth daily 30 tablet 4 07/07/2023 Active cetirizine (ZyrTEC) 10 mg tabletIndication s:Swollen uvula Take 1 tablet (10 mg total) by mouth daily 30 tablet 3 07/28/2023 Active valACYclovir (VALTREX) 1 gram tablet TAKE 1 TABLET BY MOUTH THREE TIMES A DAY FOR 7 DAYS 21 tablet 04/11/2024 Active Active Problems Problem Noted Date Diagnosed Date Annual physical exam 04/18/2024 Swollen uvula 05/31/2023 Assessment & Plan (05/31/2023 10:30 AM COLLISION REPAIRER): Rapid strep negative, throat culture pending Medrol dose pack Warm salt water gargles Tylenol (acetaminophen) or Advil/Motin (ibuprofen) as needed per package directions for aches/pains. 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 Continue current regimen with alprazolam BID PRN Assessment & Plan (12/30/2021 3:24 PM CDT): Stable, no changes. Continue current regimen with xanax prn Assessment & Plan (06/08/2021 12:44 PM COLLISION REPAIRER): Stable, no changes. Continue current regimen with xanax PRN Fluttering heart 12/11/2018 Resolved Problems Problem Noted Date Diagnosed Date Resolved Date Sore throat 07/07/2023 07/28/2023 Tibial plateau fracture, rig ht, closed, initial encounter 04/29/2020 12/16/2022 Chest pain 12/11/2018 11/23/2021 Dyspnea 12/11/2018 11/23/2021 Immunizations Immunization Administration Dates Next Due Influenza, Unspecified 06/07/2023(Deferr ed: Patient Refused),03/13/2022(Deferred: Patient Refused),03/13/2022(Deferred: Patient decision),03/13/2021(Deferred: Patient Refused),03/13/2020(Deferred: Patient Refused) Tdap 04/29/2020(Deferred: - pt received tetanus immunization at OSH),01/02/2017 Social History Tobacco Use Types Packs/Day Years Used Date Smoking Tobacco: Former Cigarettes 1 12 Vaping Smokeless Tobacco: Never Tobacco Cessation:Counseling Given: Not Answered Alcohol Use Standard Drinks/Week Comments Not Currently 6 (1 standard drink = 0.6 oz pur e alcohol) AUDIT-C Answer Date Recorded Q1: How often do you have a drink containing alcohol? Never 06/07/2023 Q2: How many drinks containi ng alcohol do you have on a typical day when you are drinking? Patient does not drink Q3: How often do you have si x or more drinks on one occasion? Never 06/07/2023 PHQ-2 Answer Date Recorded PHQ-2 Total Score (If total score is 3 or more points, staff should administer the PHQ-9) 0 06/07/2023 Sex and Gender Information Value Date Recorded Sex Assigned at Not on file Legal Sex Male 7:38 PM COLLISION REPAIRER Gender Identity Not on file Sexual Orientation Not on file Last Filed Vital Signs Vital Sign Reading Time Taken Comments Blood Pressure 126/74 06/07/2023 3:42 PM COLLISION REPAIRER Pulse 70 06/07/2023 3:42 PM COLLISION REPAIRER Temperature 36.9 C (98.5 F) 06/07/2023 3:42 PM COLLISION REPAIRER Respiratory Rate 18 07/28/2023 4:01 PM COLLISION REPAIRER Oxygen Saturation 97% 06/07/2023 3:42 PM COLLISION REPAIRER Inhaled Oxygen Concentration - - Weight 81.6 kg (180 lb) 07/28/2023 4:01 PM COLLISION REPAIRER Height 180.3 cm (5' 11) 07/28/2023 4:01 PM COLLISION REPAIRER Body Mass Index 25.1 07/28/2023 4:01 PM COLLISION REPAIRER Plan of Treatment Not on file Medical Devices Implanted Type Area Bottle Blowing Machine Tender Device Identifier Shelf Expiration Date Model / Serial / Lot Hair & Nephew/Richco/Ort [id number] Screw Bone Evos L46mm Od3.5mm Cortex Self Tap Nonsterile - [id number] Implanted:Qty: 1 on 04/29/2020 by Sarkis Melendez MD at [facility] Right: Tibia Hair & Nephew/Richco/O rtho [id number] / / Hair And Nephew/Richco/Ort ho [id number] Evos 3.5mm 32mm Self Tap Cortex Screw Bone Sterile - [id number] Implanted:Qty: 1 on 04/29/2020 by Sarkis Melendez MD at [facility] Right: Tib[place] Hair & Nephew/Richco/O rtho [id number] / / Hair And Nephew/Richco/Ort ho [id number] Evos 3.5mm 42mm Self Tap Cortex Screw Bone Sterile - [id number] Implanted:Qty: 1 on 04/29/2020 by Sarkis Melendez MD at [facility] Right: Tib[place] Hair & Nephew/Richco/O rtho [id number] / / Hair And Nephew/Richco/Ort ho [id number] Evos 3.5mm 70mm Self Tap Cortex Screw Bone Sterile - [id number] Implanted:Qty: 1 on 04/29/2020 by Sarkis Melendez MD at [facility] Right: Tib[place] Hair & Nephew/Richco/O rtho [id number] / / Hair And Nephew/Richco/Ort ho [id number] Evos 3.5mm 75mm Self Tap Cortex Screw Bone Sterile - [id number] Implanted:Qty: 1 on 04/29/2020 by Sarkis Melendez MD at [facility] Right: Tib[place] Hair & Nephew/Richco/O rtho [id number] / / Hair And Nephew/Richco/Ort ho [id number] Evos 71x10.9x2mm 32.5x2mm 4 Hole Low Profile Variable Angle Lock - [id number] Implanted:Qty: 1 on 04/29/2020 by Sarkis Melendez MD at [facility] Right: Tibia Hair & Nephew/Richco/O rtho [id number] / / Hair And Nephew/Richco/Ort ho [id number] Evos 3.5mm 65mm Self Tap Lock Screw Bone Sterile - [id number] Implanted:Qty: 1 on 04/29/2020 by Sarkis Melendez MD at [facility] Right: Tib[place] Hair & Nephew/Richco/O rtho [id number] / / Ar[employer]rex [employer] [id number] Corkscrew Ii Fiberwire 5.5mm 16.3mm 2 2 Full Thread [place] Suture - [id number] Implanted:Qty: 1 on 05/05/2020 by Sarkis Melendez MD at [facility] Right: Knee [employer] 10/10/2024 [id number] / / [id number] Ar[employer]rex Inc Ar-4020c-07 Screw Fastthread Biocomposite Interference 7mm X 20mm - [id number] Implanted:Qty: 1 on 05/05/2020 by Sarkis Melendez MD at [facility] Right: Knee [employer] 12/11/2023 AR-4020C-0 7 / / [id number] [employer] Ar-4020c-07 Screw Fastthread Biocomposite Interference 7mm X 20mm - [id number] Implanted:Qty: 1 on 05/05/2020 by Sarkis Melendez MD at [facility] Right: Knee [employer] 11/11/2023 AR-4020C-0 7 / / [id number] [employer] [id number] Corkscrew Ii Fiberwire 5.5mm 16.3mm 2 2 Full Thread [place] Suture - [id number] Implanted:Qty: 1 on 05/05/2020 by Sarkis Melendez MD at [facility] Right: Knee [employer] 01/10/2025 [id number] / / [id number] [facility] [id number] 23cm 2 Bundle Frozen Graft Soft Tissue Semitendinosus Tendon - [id number] Implanted:Qty: 1 on 05/05/2020 by Sarkis Melendez MD at [facility] Right: Knee [facility] 05/11/2023 [id number] / / [id number] Ar[employer] Ar-4020c-07 Screw Fastthread Biocomposite Interference 7mm X 20mm - [id number] Implanted:Qty: 1 on 05/05/2020 by Sarkis Melendez MD at [facility] Right: Knee [employer] 01/11/2024 AR-4020C-0 7 / / [id number] [employer] Ar-1915sf Corkscrew Fiberwire 3.5mm 12mm Self Tap Eyelet Handle Core Maker - [id number] Implanted:Qty: 1 on 05/05/2020 by Sarkis Melendez MD at [facility] Right: Knee [employer] 07/13/2023 AR-1915SF / / [id number] [employer] Ar-2324bcc Swivelock C 4.75mm 19.1mm Closed Eyelet Vent [place] Suture - [id number] Implanted:Qty: 1 on 05/05/2020 by Sarkis Melendez MD at [facility] [employer] [id number] 10/11/2023 AR-2324BC C / / [id number] [employer] Ar-2324bcc Swivelock C 4.75mm 19.1mm Closed Eyelet Vent [place] Suture - [id number] Implanted:Qty: 1 on 05/05/2020 by Sarkis Melendez MD at [facility] Right: Knee [employer] [id number] 08/11/2023 AR-2324BCC / / [id number] [employer] [id number] Corkscrew Ii Fiberwire 5.5mm 16.3mm 2 2 Full Thread [place] Suture - [id number] Implanted:Qty: 1 on 05/05/2020 by Sarkis Melendez MD at [facility] Right: Knee [employer] 01/10/2025 [id number] / / [id number] Explanted Type Area Bottle Blowing Machine Tender Device Identifier Shelf Expiration Date Model / Serial / Lot [employer] [id number] Alfred .062in 9in Trocar Point One End Orthopedic Wire - [id number] Explanted:Qty: 2 on 04/29/2020 by Sarkis Melendez MD at [facility] Right: Tibia [employer] [id number] S / / Procedures Procedure Name Priority Date/Time Associated Diagnosis Comments HEPATITIS PANEL, ACUTE Routine 07/14/2022 4:29 PM COLLISION REPAIRER Screening for STD (sexually transmitted disease) from Last 3 Months or Most Recently Relevant to Health Maintenance Results * Hepatitis panel, acute (07/14/2022 4:29 PM COLLISION REPAIRER) Hep A IgM Nonreactive Nonreactive [facility] Comment: Interpretive Data: If Hep A IgM Ab is reported as Equivocal, a new sample should be drawn in two weeks for testing. Current interpretive data was last revised on 19. Hep B core IgM Nonreactive Nonreactive [facility] Comment: Interpretive Data If HepB Core IgM Ab is reported as Equivocal, a new sample should be drawn in two weeks for testing. Current interpretive data was last revised on 19. Hep C Ab Nonreactive Nonreactive [facility] Comment: Interpretive Data Nonreactive: Antibodies to HCV not detected. Does NOT exclude the possibility of recent exposure to HCV. Equivocal: Equivocal for HCV antibodies. Supplemental molecular testing will be automatically performed to determine infection status in accordance with current CDC screening recommendations. Reactive: Positive for HCV antibodies. This may represent current or past HCV infection. Supplemental molecular testing will be automatically performed to determine current infection status in accordance with current CDC screening recommendations. Interpretive data was last revised on 2019. HepBsAg Nonreactive Nonreactive [facility] Blood 07/14/2022 4:29 PM COLLISION REPAIRER 07/14/2022 6:10 PM COLLISION REPAIRER [facility] MICROBIOLOGY - GENER AL ORDERABLES Final Result [facility] [address] [facility] Department [place] [address] from Last 3 Months or Most Recently Relevant to Health Maintenance Insurance [facility] CHOICE [place]F [place] Advance Directives For more information, please contact: [phone] * Full Code (Latest Code Status on File) Date Activated Date Inactivated Comments 04/29/2020 4:40 PM 04/30/2020 11:14 PM * Full Code Date Activated Date Inactivated Comments 04/29/2020 4:40 PM 04/29/2020 4:40 PM Care Teams Copy Reader Relationship Specialty Start Date End Date Raymond Ding MD PCP - General Family Medicine 03/18/21
--- OUTSIDE RECORDS SUMMARY | 2024-12-12 15:04 | XMS_ITS | Clinical Summary ---
Author Organization [facility] Address [address] [place] [address] Care Team Providers Care Botany Teacher Name Role Phone Raymond Ding MD Primary Care Provider [phone] Allergies Active Allergy Reactions Criticality Noted Date [...] 05/31/2023 Assessment & Plan (05/31/2023 10:30 AM POWDER PRESS OPERATOR): Rapid strep negative, throat culture pending Medrol dose pack Warm salt water gargles Tylenol (acetaminophen) or Advil/Motin (ibuprofen) as needed per package directions for aches/pains. 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 Continue current regimen with alprazolam BID PRN Assessment & Plan (12/30/2021 3:24 PM CDT): Stable, no changes. Continue current regimen with xanax prn Assessment & Plan (06/08/2021 12:44 PM POWDER PRESS OPERATOR): Stable, no changes. Continue current regimen with [...] - pt received tetanus immunization at [facility]SH),01/02/2017 Surgical History Surgery Date Site/Laterality Comments NASAL SEPTUM SURGERY 12/12/2019 - 01/11/2020 ORIF TIBIA FRACTURE 04/29/2020 LEG SURGERY Medical History Medical History Date Comments GERD (gastroesophageal reflux disease) Awareness under anesthesia Repor ts in nasal septum surgery 12/2019 i woke up too early, i just remember coughing and then they put me back to sleep Ear problems Sinusitis Family History Medical History Relation Name Comments No Known Problems Brother No Known Problems Father Lung cancer Maternal Grandmother Cancer Mother No Known Problems Sister Anesthesia problems Neg Hx Relation Name Status Comments Brother Alive Father Alive Maternal Grandmother Alive Mother Alive Sister Alive Social History Tobacco Use Types Packs/Day Years [...] on file Legal Sex Male 7:38 PM POWDER PRESS OPERATOR Gender Identity Not on file Sexual Orientation Not on file Obstetrics History Last Filed Vital Signs Vital Sign Reading Time Taken Comments Blood Pressure 126/74 06/07/2023 3:42 PM POWDER PRESS OPERATOR Pulse 70 06/07/2023 3:42 PM POWDER PRESS OPERATOR Temperature 36.9 C (98.5 F) 06/07/2023 3:42 PM POWDER PRESS OPERATOR Respiratory Rate 18 07/28/2023 4:01 PM POWDER PRESS OPERATOR Oxygen Saturation 97% 06/07/2023 3:42 PM POWDER PRESS OPERATOR Inhaled Oxygen Concentration - - Weight 81.6 kg (180 lb) 07/28/2023 4:01 PM POWDER PRESS OPERATOR Height 180.3 cm (5' 11) 07/28/2023 4:01 PM POWDER PRESS OPERATOR Body Mass Index 25.1 07/28/2023 4:01 PM POWDER PRESS OPERATOR Plan of Treatment Health Maintenance Due Date Last Done Comments Varicella Vaccines (1 of 2 - 13+ 2-dose series) 2006 Hepatitis B Screening 2011 Regular Well Visit/Exam 18-64 2011 Depression Screening 06/07/2024 06/07/2023, 12/16/2022, 12/30/2021, Additional history exists Influenza Vaccine (Season Ended) 2025 DTaP/Tdap/Td Vaccine (2 - Td or Tdap) 01/02/2027 01/02/2017 Hepatitis C Screening Completed 07/14/2022, 021 HPV Vaccines Aged Out No longer eligi ble based on patient's age to complete this topic Pneumococcal vaccine <65 Aged Out No longer eligible based on patient's age to complete this topic Medical Devices Implanted Type Area Project Construction Assistant Manager Device Identifier Shelf Expiration Date Model / Serial / Lot Hair & Nephew/Richco/Ort ho [id number] Screw Bone Evos L46mm Od3.5mm Cortex Self Tap Nonsterile - [id number] Implanted:Qty: 1 on 04/29/2020 by Sarkis Melendez MD at [facility] Right: [place] Hair [employer] Nephew/Richco/O rtho [id number] / / Hair And Nephew/Richco/Ort ho [id number] Evos 3.5mm 32mm Self Tap Cortex Screw Bone Sterile - [id number] Implanted:Qty: 1 on 04/29/2020 by Sarkis Melendez MD at [facility] Right: [place] Hair & Nephew/Richco/O rtho [id number] / / Hair And Nephew/Richco/Ort ho [id number] Evos 3.5mm 42mm Self Tap Cortex Screw Bone Sterile - [id number] Implanted:Qty: 1 on 04/29/2020 by Sarkis Melendez MD at [facility] Right: [place] Hair & Nephew/Richco/O rtho [id number] / / Hair And Nephew/Richco/Ort ho [id number] Evos 3.5mm 70mm Self Tap Cortex Screw Bone Sterile - [id number] Implanted:Qty: 1 on 04/29/2020 by Sarkis Melendez MD at [facility] Right: [place] Hair & Nephew/Richco/O rtho [id number] / / Hair And Nephew/Richco/Ort ho [id number] Evos 3.5mm 75mm Self Tap Cortex Screw Bone Sterile - [id number] Implanted:Qty: 1 on 04/29/2020 by Sarkis Melendez MD at [facility] Right: [place] Hair & Nephew/Richco/O rtho [id number] / / Hair And Nephew/Richco/Ort ho [id number] Evos 71x10.9x2mm 32.5x2mm 4 Hole Low Profile Variable Angle Lock - [id number] Implanted:Qty: 1 on 04/29/2020 by Sarkis Melendez MD at [facility] Right: [place] Hair & Nephew/Richco/O rtho [id number] / / Hair And Nephew/Richco/Ort ho [id number] Evos 3.5mm 65mm Self Tap Lock Screw Bone Sterile - [id number] Implanted:Qty: 1 on 04/29/2020 by Sarkis Melendez MD at [facility] Right: [place] Hair & Nephew/Richco/O rtho [id number] / / [employer] [id number] Corkscrew Ii Fiberwire 5.5mm 16.3mm 2 2 Full Thread L[place] Suture - [id number] Implanted:Qty: 1 on 05/05/2020 by Sarkis Melendez MD at [facility] Right: Knee [employer] 10/10/2024 [id number] / / [id number] Ar[employer] Ar-4020c-07 Screw Fastthread Biocomposite Interference 7mm X 20mm - [id number] Implanted:Qty: 1 on 05/05/2020 by Sarkis Melendez MD at [facility] Right: Knee [employer] 12/11/2023 AR-4020C-0 7 / / [id number] [employer] Ar-4020c-07 Screw Fastthread Biocomposite Interference 7mm X 20mm - [id number] Implanted:Qty: 1 on 05/05/2020 by Sarkis Melendez MD at [facility] Right: Knee [employer] 11/11/2023 AR-4020C-0 7 / / [id number] [employer] [id number] Corkscrew Ii Fiberwire 5.5mm 16.3mm 2 2 Full Thread Lign[place] Suture - [id number] Implanted:Qty: 1 on 05/05/2020 by Sarkis Melendez MD at [facility] Right: Knee [employer] 01/10/2025 [id number] / / [id number] [facility] [id number] 23cm 2 Bundle Frozen Graft Soft Tissue Semitendinosus Tendon - [id number] Implanted:Qty: 1 on 05/05/2020 by Sarkis Melendez MD at [facility] Right: Knee [facility] 05/11/2023 [id number] / / [id number] [employer] Ar-4020c-07 Screw Fastthread Biocomposite Interference 7mm X 20mm - [id number] Implanted:Qty: 1 on 05/05/2020 by Sarkis Melendez MD at [facility] Right: Knee [employer] 01/11/2024 AR-4020C-0 7 / / [id number] [employer] Ar-1915sf Corkscrew Fiberwire 3.5mm 12mm Self Tap Eyelet Handle Tissue Recovery Technician - [id number] Implanted:Qty: 1 on 05/05/2020 by Sarkis Melendez MD at [facility] Right: Knee [employer] 07/13/2023 AR-1915SF / / [id number] [employer] Ar-2324bcc Swivelock C 4.75mm 19.1mm Closed Eyelet Vent Lignum Suture - [id number] Implanted:Qty: 1 on 05/05/2020 by Srakis Melendez MD at [facility] [employer] [id number] 10/11/2023 AR-2324BC C / / [id number] [employer] Ar-2324bcc Swivelock C 4.75mm 19.1mm Closed Eyelet Vent Lignum Suture - [id number] Implanted:Qty: 1 on 05/05/2020 by Sarkis Melendez MD at [facility] Right: Knee [employer] [id number] 08/11/2023 AR-2324BCC / / [id number] [employer] [id number] Corkscrew Ii Fiberwire 5.5mm 16.3mm 2 2 Full Thread Lignum Suture - [id number] Implanted:Qty: 1 on 05/05/2020 by Sarkis Melendez MD at [facility] Right: Knee [employer] 01/10/2025 [id number] / / [id number] Explanted Type Area Project Construction Assistant Manager Device Identifier Shelf Expiration Date Model / Serial / Lot [employer] [id number] Alfred .062in 9in Trocar Point One End Orthopedic Wire - [id number] Explanted:Qty: 2 on 04/29/2020 by Sarkis Melendez MD at [facility] Right: Tibia [employer] [id number] S / / Procedures Procedure Name Priority Date/Time Associated Diagnosis Comments HEPATITIS PANEL, ACUTE Routine 07/14/2022 4:29 PM POWDER PRESS OPERATOR Screening for STD (sexually transmitted disease) from Last 3 Months or Most Recently Relevant to Health Maintenance Results * Hepatitis panel, acute (07/14/2022 4:29 PM POWDER PRESS OPERATOR) Hep A IgM Nonreactive Nonreactive [facility] Comment: Interpretive Data: If Hep A IgM Ab is reported as Equivocal, a new sample should be drawn in two weeks for testing. Current interpretive data was last revised on 19. Hep B core IgM Nonreactive Nonreactive [facility] Comment: Interpretive Data If HepB Core IgM Ab is reported as Equivocal, a new sample should be drawn in two weeks for testing. Current interpretive data was last revised on 19. Hep C Ab Nonreactive Nonreactive [facility] Comment: Interpretive Data Nonreactive: Antibodies to HCV [...] last revised on 2019. HepBsAg Nonreactive Nonreactive [facility] Blood 07/14/2022 4:29 PM POWDER PRESS OPERATOR 07/14/2022 6:10 PM POWDER PRESS OPERATOR [facility] MICROBIOLOGY - GENER AL ORDERABLES Final Result [facility] [address] [facility] Department [place] [address] from Last 3 Months or Most Recently Relevant to Health Maintenance Insurance [facility] BL CHOICE PRF PPO [place] IDPA Advance Directives For more information, please contact: [phone] * Full Code (Latest Code Status on File) Date Activated Date Inactivated Comments 04/29/2020 4:40 PM 04/30/2020 11:14 PM * Full Code Date Activated Date Inactivated Comments 04/29/2020 4:40 PM 04/29/2020 4:40 PM Care Teams Botany Teacher Relationship Specialty Start Date End Date Raymond Ding MD PCP - General Family Medicine 03/18/21
--- OUTSIDE RECORDS SUMMARY | 2024-12-12 15:04 | XMS_ITS | Clinical Summary ---
Author Organization [facility] Address [address] [place] [id number] Care Team Providers Care Dispersion Mixer Name Role Phone Unavailable Primary Care Provider Unavailabl e Social History Tobacco Use Types Packs/Day Years Used Date Smoking Tobacco: Never Assessed Sex and Gender Information Value Date Recorded Sex Assigned at Not on file Legal Sex Male 4:18 PM CDT Gender Identity Not on file Sexual Orientation Not on file Last Filed Vital Signs Vital Sign Reading Time Taken Comments Blood Pressure 140/80 12/29/2016 1:19 PM CDT Pulse 84 12/29/2016 1:19 PM CDT Temperature - - Respiratory Rate - - Oxygen Saturation - - Inhaled Oxygen Concentration - - Weight 78 kg (172 lb) 12/29/2016 1:19 PM CDT Height 181.6 cm (5' 11.5) 12/29/2016 1:19 PM CD T Body Mass Index 23.65 12/29/2016 1:19 PM CDT Plan of Treatment Health Maintenance Due Date Last Done Comments Annual Physical 1996 Hepatitis C 2011 Hepatitis B Vaccines (1 of 3 - 19+ 3-dose series) 2012 COVID-19 Vaccine (2023-2 5 season) 2024 DTaP, Tdap and Td Vaccines ( 2 - Td or Tdap) 01/02/2027 01/02/2017 HPV Vaccines Aged Out No longer eligi ble based on patient's age to complete this topic Meningococcal B Vaccine Aged Out No l onger eligible based on patient's age to complete this topic Meningococcal Vaccine Aged Out No nito mack eligible based on patient's age to complete this topic Pneumococcal Vaccine: Pediat rics (0 to 5 Years) and At-Risk Patients (6 to 49 Years) Aged Out No longer eligi ble based on patient's age to complete this topic RSV Immunizations Under 20 Months Aged Out No longer eligible based on patient's age to complete this topic
--- NOTE | 2024-12-12 15:43 | ED.GENADULT ---
HPI - General Adult General Chief complaint: Skin/Abscess/Foreign Body Stated complaint: I think I have ring worm. Time Seen by Provider: 12/12/24 15:06 History of Present Illness HPI narrative: Patient is a 29-year-old male who presents ER with concerns for skin rash. 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 They are itchy. He is concerned he may have ringworm but then someone told him he may have scabies. Nothing around his waistline. No fevers or chills or sweats. Related Data Allergies Allergy/AdvReac Type Severity Reaction Status Date / Time pollen extracts Allergy Mild Difficulty Verified 12/12/24 15:03 Breathing Penicillins AdvReac Intermediate Dizziness Verified 12/12/24 15:03 Review of Systems Musculoskeletal: Musculoskeletal: Reports no additional musculoskeletal complaints Integumentary/Breasts: Skin/Breast: Reports system reviewed and no additional complaints, except as docu PMFSH Past Medical History Medical History (Updated 12/12/24 @ 15:44 by Mahamed Mahan MD) Patient denies significant medical history Surgical History Surgical History S/P nasal surgery Family History Family History Other Diabetes mellitus Family history of cardiovascular disease Family history of malignant neoplasm Hypertension Social History Social History Smoking status: Current every day smoker Alcohol intake: current Substance use: current Substance use type: marijuana Gender identity (if verbalized by the patient): Male Sexual Orientation (if Verbalized by the Patient): Straight or Heterosexual Exam Narrative: GENERAL: Well-appearing, well-nourished, and in no acute distress. HEAD: Normocephalic, atraumatic. ENT: Mucous membranes moist. NECK: Supple. EXTREMITIES: Normal range of motion. No edema. SKIN: Warm, dry. Singular rounded nodular bumps to the wrist and forearm on the right side as well as left neck. No excoriations or cellulitis. No pustules. No vesicles. NEURO: Alert and oriented x3. PSYCH: Normal mood and affect. Course Course Emergency Course: Contact dermatitis versus scabies. No harm and permethrin treatment. Discussed with patient. Also discussed washing sheets and clothing in hot water and high heat drier and grinder tender. Vital Signs Vital signs: Vital Signs Temperature 98.4 F 12/12/24 15:03 Pulse Rate 94 12/12/24 15:03 Respiratory Rate 16 12/12/24 15:03 Blood Pressure 131/87 12/12/24 15:03 Pulse Oximetry 97 12/12/24 15:03 Oxygen Delivery Room Air 12/12/24 15:03 Temperature 98.4 F 12/12/24 15:03 Pulse Rate 94 12/12/24 15:03 Respiratory Rate 16 12/12/24 15:03 Blood Pressure 131/87 12/12/24 15:03 Pulse Oximetry 97 12/12/24 15:03 Oxygen Delivery Room Air 12/12/24 15:03 Medical Decision Making Vital Signs Vital Signs: Vital Signs Temperature 98.4 F 12/12/24 15:03 Pulse Rate 94 12/12/24 15:03 Respiratory Rate 16 12/12/24 15:03 Blood Pressure 131/87 12/12/24 15:03 Pulse Oximetry 97 12/12/24 15:03 Oxygen Delivery Room Air 12/12/24 15:03 Temperature 98.4 F 12/12/24 15:03 Pulse Rate 94 12/12/24 15:03 Respiratory Rate 16 12/12/24 15:03 Blood Pressure 131/87 12/12/24 15:03 Pulse Oximetry 97 12/12/24 15:03 Oxygen Delivery Room Air 12/12/24 15:03 Discharge Plan Discharge Clinical Impression: Acute eruption of skin Patient Disposition: Home Condition: Stable Instructions: Acute Rash (ED) Additional Instructions: Your rash may be from some bites from scabies or potentially just contact dermatitis from a rope. Use permethrin x1 to treat any possible scabies infection. Patient Language: Greek Prescriptions: New permethrin 5 % cream 1 applic topical ONCE Qty: 60 0RF Rx Instructions: leave on for 8 to14 hrs before washing off No Action doxycycline hyclate 100 mg capsule 100 mg PO DAILY 7 Days Qty: 7 0RF fluticasone propionate [Allergy Relief (fluticasone)] 50 mcg/actuation spray,suspension 1 spray intranasal Q12H Qty: 16 0RF Rx Instructions: administer into each nostril guaifenesin [Mucinex] 1,200 mg tablet extended release 12hr 1,200 mg PO Q12H Qty: 20 0RF fluticasone propionate 50 mcg/actuation spray,suspension 1 spray intranasal Q12H Qty: 16 0RF Rx Instructions: administer into each nostril guaifenesin 1,200 mg tablet extended release 12hr 1,200 mg PO Q12H Qty: 14 0RF Follow-up/Referrals: Toña,Raymond Shultz MD [Non-Staff] - 1 Week
--- OUTSIDE RECORDS SUMMARY | 2024-12-12 15:51 | XMS_ITS | Clinical Summary ---
Author Organization [facility] Address [address] [place] [address] Care Team Providers Care Automation And Controls Instructor Name Role Phone Raymond Ding MD Primary Care Provider [phone] Allergies Active Allergy Reactions Criticality Noted Date [...] 05/31/2023 Assessment & Plan (05/31/2023 10:30 AM SECOND OPERATOR): Rapid strep negative, throat culture pending Medrol dose pack Warm salt water gargles Tylenol (acetaminophen) or Advil/Motin (ibuprofen) as needed per package directions for aches/pains. 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 Continue current regimen with alprazolam BID PRN Assessment & Plan (12/30/2021 3:24 PM CDT): Stable, no changes. Continue current regimen with xanax prn Assessment & Plan (06/08/2021 12:44 PM SECOND OPERATOR): Stable, no changes. Continue current regimen [...] on file Legal Sex Male 7:38 PM SECOND OPERATOR Gender Identity Not on file Sexual Orientation Not on file Obstetrics History Last Filed Vital Signs Vital Sign Reading Time Taken Comments Blood Pressure 126/74 06/07/2023 3:42 PM SECOND OPERATOR Pulse 70 06/07/2023 3:42 PM SECOND OPERATOR Temperature 36.9 C (98.5 F) 06/07/2023 3:42 PM SECOND OPERATOR Respiratory Rate 18 07/28/2023 4:01 PM SECOND OPERATOR Oxygen Saturation 97% 06/07/2023 3:42 PM SECOND OPERATOR Inhaled Oxygen Concentration - - Weight 81.6 kg (180 lb) 07/28/2023 4:01 PM SECOND OPERATOR Height 180.3 cm (5' 11) 07/28/2023 4:01 PM SECOND OPERATOR Body Mass Index 25.1 07/28/2023 4:01 PM SECOND OPERATOR Plan of Treatment Health Maintenance Due [...] this topic Medical Devices Implanted Type Area Registration Scheduling Specialist Device Identifier Shelf Expiration Date Model / Serial / Lot Hair & Nephew/Richco/Ort ho [id number] Screw Bone Evos L46mm Od3.5mm Cortex Self Tap Nonsterile - [id number] Implanted:Qty: 1 on 04/29/2020 by Sarkis Melendez MD at [facility] Right: Tibia Hair & Nephew/Richco/O rtho [id number] / / Hiar And Nephew/Richco/Ort ho [id number] Evos 3.5mm 32mm Self Tap Cortex Screw Bone Sterile - [id number] Implanted:Qty: 1 on 04/29/2020 by Sarkis Melendez MD at [facility] Right: Tibia Hair & Nephew/Richco/O rtho [id number] / / Hair And Nephew/Richco/Ort ho [id number] Evos 3.5mm 42mm Self Tap Cortex Screw Bone Sterile - [id number] Implanted:Qty: 1 on 04/29/2020 by Sarkis Melendez MD at [facility] Right: Tibia Hair & Nephew/Richco/O rtho [id number] / / Hair And Nephew/Richco/Ort ho [id number] Evos 3.5mm 70mm Self Tap Cortex Screw Bone Sterile - [id number] Implanted:Qty: 1 on 04/29/2020 by Sarkis Melendez MD at [facility] Right: Tibia Hair & Nephew/Richco/O rtho [id number] / / Hair And Nephew/Richco/Ort ho [id number] Evos 3.5mm 75mm Self Tap Cortex Screw Bone Sterile - [id number] Implanted:Qty: 1 on 04/29/2020 by Sarkis Melendez MD at [facility] Right: Tibia Hair & Nephew/Richco/O rtho [id number] / / Hair And Nephew/Richco/Ort ho [id number] Evos 71x10.9x2mm 32.5x2mm 4 Hole Low Profile Variable Angle Lock - [id number] Implanted:Qty: 1 on 04/29/2020 by Sarkis Melendez MD at [facility] Right: Tibia Hair & Nephew/Richco/O rtho [id number] / / Hair And Nephew/Richco/Ort ho [id number] Evos 3.5mm 65mm Self Tap Lock Screw Bone Sterile - [id number] Implanted:Qty: 1 on 04/29/2020 by Sarkis Melendez MD at [facility] Right: Tibia Hair & Nephew/Richco/O rtho [id number] / / Ar[employer]rex [employer] [id number] Corkscrew Ii Fiberwire 5.5mm 16.3mm 2 2 Full Thread [place] Suture - [id number] Implanted:Qty: 1 on 05/05/2020 by Sarkis Melendez MD at [facility] Right: Knee Ar[employer] Inc 10/10/2024 [id number] / / [id number] Ar[employer]rex Inc Ar-4020c-07 Screw Fastthread Biocomposite Interference 7mm X 20mm - [id number] Implanted:Qty: 1 on 05/05/2020 by Sarkis Melendez MD at [facility] Right: Knee [employer] 12/11/2023 AR-4020C-0 7 / / [id number] [employer] Ar-4020c-07 Screw Fastthread Biocomposite Interference 7mm X 20mm - [id number] Implanted:Qty: 1 on 05/05/2020 by Sarkis Melendez MD at [facility] Right: Knee [employer] 11/11/2023 AR-4020C-0 7 / / [id number] [employer] [id number] Corkscrew Ii Fiberwire 5.5mm 16.3mm 2 2 Full Thread [place] Suture - [id number] Implanted:Qty: 1 on 05/05/2020 by Sarkis Melendez MD at [facility] Right: Knee [employer] 01/10/2025 [id number] / / [id number] [employer] [id number] 23cm 2 Bundle Frozen Graft Soft Tissue Semitendinosus Tendon - [id number] Implanted:Qty: 1 on 05/05/2020 by Sarkis Melendez MD at [facility] Right: Knee [employer] 05/11/2023 [id number] / / [id number] [employer] Ar-4020c-07 Screw Fastthread Biocomposite Interference 7mm X 20mm - [id number] Implanted:Qty: 1 on 05/05/2020 by Sarkis Melendez MD at [facility] Right: Knee [employer] 01/11/2024 AR-4020C-0 7 / / [id number] [employer] Ar-1915sf Corkscrew Fiberwire 3.5mm 12mm Self Tap Eyelet Handle Die Cast Engineer - [id number] Implanted:Qty: 1 on 05/05/2020 by Sarkis Melendez MD at [facility] Right: Knee [employer] 07/13/2023 AR-1915SF / / [id number] [employer] Ar-2324bcc Swivelock C 4.75mm 19.1mm Closed Eyelet Vent [place] Suture - [id number] Implanted:Qty: 1 on 05/05/2020 by Sarkis Melendez MD at [facility] [employer] [id number] 10/11/2023 AR-2324BC C / / [id number] [employer] Ar-2324bcc Swivelock C 4.75mm 19.1mm Closed Eyelet Vent [place] Suture - [id number] Implanted:Qty: 1 on 05/05/2020 by Sarkis Melendez MD at [facility] Right: Knee [employer] [id number] 08/11/2023 AR-2324BCC / / [id number] [employer] [id number] Corkscrew Ii Fiberwire 5.5mm 16.3mm 2 2 Full Thread [place] Suture - [id number] Implanted:Qty: 1 on 05/05/2020 by Sarkis Melendez MD at [facility] Right: Knee [employer] 01/10/2025 [id number] / / [id number] Explanted Type Area Registration Scheduling Specialist Device Identifier Shelf Expiration Date Model / Serial / Lot [employer]aire [employer] [id number] Alfred .062in 9in Trocar Point One End Orthopedic Wire - [id number] Explanted:Qty: 2 on 04/29/2020 by Sarkis Melendez MD at [facility] Right: Tibia [employer] [id number] S / / Procedures Procedure Name Priority Date/Time Associated Diagnosis Comments HEPATITIS PANEL, ACUTE Routine 07/14/2022 4:29 PM SECOND OPERATOR Screening for STD (sexually transmitted disease) from Last 3 Months or Most Recently Relevant to Health Maintenance Results * Hepatitis panel, acute (07/14/2022 4:29 PM SECOND OPERATOR) Hep A IgM Nonreactive Nonreactive TAMMY [...] Nonreactive [facility]MAN Blood 07/14/2022 4:29 PM SECOND OPERATOR 07/14/2022 6:10 PM SECOND OPERATOR Talisha GRAVES LAB MICROBIOLOGY - GENER AL ORDERABLES Final Result TAMMY HUFFMAN [address] [facility] Department [place] [address] from Last 3 Months or Most Recently Relevant to Health Maintenance Insurance [facility] BL CHOICE PRF PPO [place] IDPA Advance Directives For more information, please contact: [phone] * Full Code (Latest Code Status on File) Date Activated Date Inactivated Comments 04/29/2020 4:40 PM 04/30/2020 11:14 PM * Full Code Date Activated Date Inactivated Comments 04/29/2020 4:40 PM 04/29/2020 4:40 PM Care Teams Automation And Controls Instructor Relationship Specialty Start Date End Date Raymond Ding MD PCP - General Family Medicine 03/18/21
--- OUTSIDE RECORDS SUMMARY | 2024-12-12 15:51 | XMS_ITS | Referral Summary ---
Author Organization [facility] Address [address] [place] [address] Care Team Providers Care Member Services Coordinator Name Role Phone Raymond Ding MD Primary Care Provider [phone] Allergies Active Allergy Reactions Criticality Noted Date [...] 05/31/2023 Assessment & Plan (05/31/2023 10:30 AM CORPORATE FITNESS PROGRAM COORDINATOR): Rapid strep negative, throat culture pending Medrol dose pack Warm salt water gargles Tylenol (acetaminophen) or Advil/Motin (ibuprofen) as needed per package directions for aches/pains. 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 Assessment & Plan (06/08/2021 12:43 PM CORPORATE FITNESS PROGRAM COORDINATOR): Recurrent outbreaks Start daily valtrex Genital warts due to HPV (human papillomavirus) 06/08/2021 Assessment & Plan (06/08/2021 12:43 PM CORPORATE FITNESS PROGRAM COORDINATOR): Refer to surgery to consider wart removal Chronic pain of right knee 06/08/2021 Assessment & Plan (06/08/2021 12:43 PM CORPORATE FITNESS PROGRAM COORDINATOR): S/o tibial fracture and repair Start mobic pRN KASH (generalized anxiety disorder) 06/08/2021 Assessment & Plan (07/16/2022 9:33 AM CORPORATE FITNESS PROGRAM COORDINATOR): Stable, no changes. Continue current regimen with alprazolam BID PRN Assessment & Plan (12/30/2021 3:24 PM CDT): Stable, no changes. Continue current regimen with xanax prn Assessment & Plan (06/08/2021 12:44 PM CORPORATE FITNESS PROGRAM COORDINATOR): Stable, no changes. Continue current regimen with [...] on file Legal Sex Male 7:38 PM CORPORATE FITNESS PROGRAM COORDINATOR Gender Identity Not on file Sexual Orientation Not on file Last Filed Vital Signs Vital Sign Reading Time Taken Comments Blood Pressure 126/74 06/07/2023 3:42 PM CORPORATE FITNESS PROGRAM COORDINATOR Pulse 70 06/07/2023 3:42 PM CORPORATE FITNESS PROGRAM COORDINATOR Temperature 36.9 C (98.5 F) 06/07/2023 3:42 PM CORPORATE FITNESS PROGRAM COORDINATOR Respiratory Rate 18 07/28/2023 4:01 PM CORPORATE FITNESS PROGRAM COORDINATOR Oxygen Saturation 97% 06/07/2023 3:42 PM CORPORATE FITNESS PROGRAM COORDINATOR Inhaled Oxygen Concentration - - Weight 81.6 kg (180 lb) 07/28/2023 4:01 PM CORPORATE FITNESS PROGRAM COORDINATOR Height 180.3 cm (5' 11) 07/28/2023 4:01 PM CORPORATE FITNESS PROGRAM COORDINATOR Body Mass Index 25.1 07/28/2023 4:01 PM CORPORATE FITNESS PROGRAM COORDINATOR Plan of Treatment Not on file Medical Devices Implanted Type Area Pathology Specialist Device Identifier Shelf Expiration Date Model / Serial / Lot Hair & Nephew/Richco/Ort [id number] Screw Bone Evos L46mm Od3.5mm Cortex Self Tap Nonsterile - [id number] Implanted:Qty: 1 on 04/29/2020 by Sarkis Melendez MD at [facility] Right: Tibia Hair & Nephew/Richco/O rtho [id number] / / Hair And Nephew/Richco/Ort ho [id number] Evos 3.5mm 32mm Self Tap Cortex Screw Bone Sterile - [id number] Implanted:Qty: 1 on 04/29/2020 by Sarkis Melendez MD at [facility] Right: Tib[place] Hair & Nephew/Richco/O rtho [id number] / / Hair And Nephew/Richco/Ort ho [id number] Evos 3.5mm 42mm Self Tap Cortex Screw Bone Sterile - [id number] Implanted:Qty: 1 on 04/29/2020 by Sarkis Melendez MD at [facility] Right: Tib[place] Hair & Nephew/Richco/O rtho [id number] / / Hair And Nephew/Richco/Ort ho [id number] Evos 3.5mm 70mm Self Tap Cortex Screw Bone Sterile - [id number] Implanted:Qty: 1 on 04/29/2020 by Sarkis Melendez MD at [facility] Right: Tib[place] Hair & Nephew/Richco/O rtho [id number] / / Hair And Nephew/Richco/Ort ho [id number] Evos 3.5mm 75mm Self Tap Cortex Screw Bone Sterile - [id number] Implanted:Qty: 1 on 04/29/2020 by Sarkis Melendez MD at [facility] Right: Tib[place] Hair & Nephew/Richco/O rtho [id number] / / Hair And Nephew/Richco/Ort ho [id number] Evos 71x10.9x2mm 32.5x2mm 4 Hole Low Profile Variable Angle Lock - [id number] Implanted:Qty: 1 on 04/29/2020 by Sarkis Melendez MD at [facility] Right: Tib[place] Hair & Nephew/Richco/O rtho [id number] / / Hair And Nephew/Richco/Ort ho [id number] Evos 3.5mm 65mm Self Tap Lock Screw Bone Sterile - [id number] Implanted:Qty: 1 on 04/29/2020 by Sarkis Melendez MD at [facility] Right: Tib[place] Hair & Nephew/Richco/O rtho [id number] / / [employer] [id number] Corkscrew Ii Fiberwire 5.5mm 16.3mm 2 2 Full Thread [place] Suture - [id number] Implanted:Qty: 1 on 05/05/2020 by Sarkis Melendez MD at [facility] Right: Knee [employer] 10/10/2024 [id number]-3 / / [id number] [employer] Ar-4020c-07 Screw Fastthread Biocomposite Interference 7mm X 20mm - [id number] Implanted:Qty: 1 on 05/05/2020 by Sarkis Melendez MD at [facility] Right: Knee [employer] 12/11/2023 AR-4020C-0 7 / / [id number] [employer] Ar-4020c-07 Screw Fastthread Biocomposite Interference 7mm X 20mm - [id number] Implanted:Qty: 1 on 05/05/2020 by Sarkis Melendez MD at [facility] Right: Knee [employer] 11/11/2023 AR-4020C-0 7 / / [id number] [employer] [id number] Corkscrew Ii Fiberwire 5.5mm 16.3mm 2 2 Full Thread [place] Suture - [id number] Implanted:Qty: 1 on 05/05/2020 by Sarkis Melendez MD at [facility] Right: Knee [employer] 01/10/2025 [id number]-2 / / [id number] [employer] [id number] 23cm 2 Bundle Frozen Graft Soft Tissue Semitendinosus Tendon - [id number] Implanted:Qty: 1 on 05/05/2020 by Sarkis Melendez MD at [facility] Right: Knee [facility] 05/11/2023 [id number] / / [id number] [employer] Ar-4020c-07 Screw Fastthread Biocomposite Interference 7mm X 20mm - [id number] Implanted:Qty: 1 on 05/05/2020 by Sarkis Melendez MD at [facility] Right: Knee [employer] 01/11/2024 AR-4020C-0 7 / / [id number] [employer] Ar-1915sf Corkscrew Fiberwire 3.5mm 12mm Self Tap Eyelet Handle Wave Soldering Machine Operator - [id number] Implanted:Qty: 1 on 05/05/2020 by Sarkis Melendez MD at [facility] Right: Knee [employer] 07/13/2023 AR-1915SF / / [id number] [employer] Ar-2324bcc Swivelock C 4.75mm 19.1mm Closed Eyelet Vent [place] Suture - [id number] Implanted:Qty: 1 on 05/05/2020 by Sarkis Melendez MD at [facility] [employer] [id number] 10/11/2023 AR-2324BC C / / [id number] [employer] Ar-2324bcc Swivelock C 4.75mm 19.1mm Closed Eyelet Vent [place] Suture - [id number] Implanted:Qty: 1 on 05/05/2020 by Sarkis Melendez MD at [facility] Right: Knee [employer] [id number] 08/11/2023 AR-2324BCC / / [id number] [employer] [id number] Corkscrew Ii Fiberwire 5.5mm 16.3mm 2 2 Full Thread [place] Suture - [id number] Implanted:Qty: 1 on 05/05/2020 by Sarkis Melendez MD at [facility] Right: Knee [employer] 01/10/2025 [id number] / / [id number] Explanted Type Area Pathology Specialist Device Identifier Shelf Expiration Date Model / Serial / Lot Plac[employer] [id number] Alfred .062in 9in Trocar Point One End Orthopedic Wire - [id number] Explanted:Qty: 2 on 04/29/2020 by Sarkis Melendez MD at [facility] Right: Tibia [employer] [id number] S / / Procedures Procedure Name Priority Date/Time Associated Diagnosis Comments HEPATITIS PANEL, ACUTE Routine 07/14/2022 4:29 PM CORPORATE FITNESS PROGRAM COORDINATOR Screening for STD (sexually transmitted disease) from Last 3 Months or Most Recently Relevant to Health Maintenance Results * Hepatitis panel, acute (07/14/2022 4:29 PM CORPORATE FITNESS PROGRAM COORDINATOR) Hep A IgM Nonreactive Nonreactive [facility] Comment: Interpretive Data: If Hep A IgM Ab is reported as Equivocal, a new sample should be drawn in two weeks for testing. Current interpretive data was last revised on 19. Hep B core IgM Nonreactive Nonreactive [facility] Comment: Interpretive Data If HepB Core IgM Ab is reported as Equivocal, a new sample should be drawn in two weeks for testing. Current interpretive data was last revised on 19. Hep C Ab Nonreactive Nonreactive [facility] Comment: Interpretive Data Nonreactive: Antibodies to [...] last revised on 2019. HepBsAg Nonreactive Nonreactive [facility] Blood 07/14/2022 4:29 PM CORPORATE FITNESS PROGRAM COORDINATOR 07/14/2022 6:10 PM CORPORATE FITNESS PROGRAM COORDINATOR Talisha GRAVES LAB MICROBIOLOGY - GENER AL ORDERABLES Final Result TAMMY [address] [facility] Department [place] [address] from Last 3 Months or Most Recently Relevant to Health Maintenance Insurance [facility] BL CHOICE PRF PPO [place] IDPA Advance Directives For more information, please contact: [phone] * Full Code (Latest Code Status on File) Date Activated Date Inactivated Comments 04/29/2020 4:40 PM 04/30/2020 11:14 PM * Full Code Date Activated Date Inactivated Comments 04/29/2020 4:40 PM 04/29/2020 4:40 PM Care Teams Member Services Coordinator Relationship Specialty Start Date End Date Raymond Ding MD PCP - General Family Medicine 03/18/21
--- OUTSIDE RECORDS SUMMARY | 2024-12-12 15:51 | XMS_ITS | Clinical Summary ---
Author Organization [facility] Address [address] [place] [address] Care Team Providers Care Salon Assistant Name Role Phone Unavailable Primary Care Provider [...]
[2024-12-12 15:58] VITALS: BP 123/77; PULSE 81; RESP 16; TEMP 36.8; O2SAT 97
== END 2024-12-12 16:02 | disposition home or self-care (01) ==
LOC: ANHED 15:49
PROVIDERS: Emergency Provider Emergency Medicine
DX: R21 Rash and other nonspecific skin eruption (principal); F17.200 Nicotine dependence, unspecified, uncomplicated
CPT/HCPCS: 99283

== ENCOUNTER 2024-12-19 22:28 | Emergency (ER) | payer SELFPAY ==
--- OUTSIDE RECORDS SUMMARY | 2024-12-19 22:29 | XMS_ITS | Data Portability ---
Author Organization [place] - [facility] OFFICE Address [address] [place] [address] Care Team Providers Care Director Card Name Role Phone KARINA JARA Primary Care Provider Assessment Encounter Date Assessment Date Assessment LastModified [...] current medications, and medical follow-up as noted. Not available 12/11/2018 21:51:20 Plan of Treatment [...] By Organization Details Last Modified Time 12/11/2018 99009 chest pain: care instructions Not available 12/11/2018 21:51:30 Reason for Referral None Reported. Results Created Date Observation Date Name Description Value Unit Range Abnormal Flag Note LastModifiedBy Organization Detail LastModifiedTime 12/16/19 19 10/31/2018 elect pedro perez am No observ ation record ed. [email or web address] Not Available 12/15 13:33:35 12/16/19 19 12/11/2018 elect juveshannon chris am No observ ation record ed. Jesus Hope MD [address], [place], [address], 12/15/2018 13:34:14 12/20/19 19 10/15/2018 elect pedro chris am No observ ation record ed. [email or web address] Jesus Hope MD [address], [place], [address], 12/19/2018 16:10:34 12/20/19 19 10/31/2018 XR, chest , 2 view No observ ation record ed. [email or web address] Not Available 12/19 16:38:00 Result Notes None recorded. Problems Name Problem SNOMED Code Status Onset Date Resolution Date Notes Provider Name and Address Organization Details Recorded Time Heart disease 26489236 Completed 201812/11/2018 All on the mother and grandmoth er side of the family;al 12/11/18 Marie Sorto null, [place] - [facility] 9 16:21:31 Dyspnea 542255581 Active 2018 Marie Allenr [place], [place] [facility] 16:21:39 Flutteri ng heart 810996212 Active 2018 Marie Allen[place] [facility] 9 16:21:47 Chest pain 44412597 Active 2018 Marie Allenr [place], [place] [facility] 9 16:21:52 Problem Notes None recorded. Medical Equipment None Reported. Allergies Allergen ID Allergen Name Allergen Category Reaction Reaction Severity Criticality Documentation Date Start Date Code Code System Note Provider Name and Address Organization Details Recorded Time 8456 Product containin g penicilli n (product) medicatio n Not available Not available Not available 12/11/2018 26838 8001 SNOMED Marie Allenr null, [place] - [...] in Arterial blood by Pulse oximetry Systolic And Diastolic Provider Name and Address Organization Details Last Updated DateTime 9 71284.6 3 g 24.4 kg/m2 182.88 cm 100 /min 94 % 94 % 128/90 mm[Hg] Marie Sorto [facility] 9 16:18:53 Social History Question Answer Notes LastModified by Organizat End[employer] Details LastModified Time Tobacco Smoking Status Former Smoker 1ppd Not Available [facility] 04/15/2020 03:30:41 What Was The Date Of Your Most Recent Tobacco Screening? 12/11/2018 [id number] Information not available 04/15/2020 How Many Years Have You Smoked Tobacco? 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 Stress echo scheduled Fluttering heart 5112598 04 R00.2 Obtain 24 hour Holter. Mass of left breast 1224 752563 3552531 N63.20 Fibrocysti c disease vs nodule recommend [...] [place] [facility] Larry Orellana [id number] Larry Orellana 01/19/2019 1 [facility] - DOS PRIOR TO 2020 (MEDICAID REPLACEMENT - HMO) Larry Orellana [id number] Larry Orellana Notes Date Note Type Note [...]
--- OUTSIDE RECORDS SUMMARY | 2024-12-19 22:29 | XMS_ITS | Clinical Summary ---
Author Organization [facility] Address [address] [place] [address] Care Team Providers Care Juice Standardizer Name Role Phone Unavailable Primary Care Provider [...]
--- OUTSIDE RECORDS SUMMARY | 2024-12-19 22:29 | XMS_ITS | Clinical Summary ---
Author Organization [facility] Address [address] [place] [address] Care Team Providers Care Recreation Technician Name Role Phone Raymond Ding MD Primary Care Provider [phone] Allergies Active Allergy Reactions Criticality Noted Date [...] 05/31/2023 Assessment & Plan (05/31/2023 10:30 AM FROG FARMER): Rapid strep negative, throat culture pending Medrol dose pack Warm salt water gargles Tylenol (acetaminophen) or Advil/Motin (ibuprofen) as needed per package directions for aches/pains. 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 Continue current regimen with alprazolam BID PRN Assessment & Plan (12/30/2021 3:24 PM CDT): Stable, no changes. Continue current regimen with xanax prn Assessment & Plan (06/08/2021 12:44 PM FROG FARMER): Stable, no changes. Continue current regimen with [...] on file Legal Sex Male 7:38 PM FROG FARMER Gender Identity Not on file Sexual Orientation Not on file Obstetrics History Last Filed Vital Signs Vital Sign Reading Time Taken Comments Blood Pressure 126/74 06/07/2023 3:42 PM FROG FARMER Pulse 70 06/07/2023 3:42 PM FROG FARMER Temperature 36.9 C (98.5 F) 06/07/2023 3:42 PM FROG FARMER Respiratory Rate 18 07/28/2023 4:01 PM FROG FARMER Oxygen Saturation 97% 06/07/2023 3:42 PM FROG FARMER Inhaled Oxygen Concentration - - Weight 81.6 kg (180 lb) 07/28/2023 4:01 PM FROG FARMER Height 180.3 cm (5' 11) 07/28/2023 4:01 PM FROG FARMER Body Mass Index 25.1 07/28/2023 4:01 PM FROG FARMER Plan of Treatment Health Maintenance Due Date [...] this topic Medical Devices Implanted Type Area Electric Meter Repairer Helper Device Identifier Shelf Expiration Date Model / Serial / Lot Hair & Nephew/Richco/Ort ho [id number] Screw Bone Evos L46mm Od3.5mm Cortex Self Tap Nonsterile - [id number] Implanted:Qty: 1 on 04/29/2020 by Sarkis Melendez MD at [facility] Right: Tibia Hair & Nephew/Richco/O rtho [id number] / / Hair And Nephew/Richco/Ort ho [id number] Evos 3.5mm 32mm Self Tap Cortex Screw Bone Sterile - [id number] Implanted:Qty: 1 on 04/29/2020 by Sarkis Melendez MD at [facility] Right: Tib[place] Hair & Nephew/Richco/O rtho [id number] / / Hair And Nephew/Richco/Ort ho [id number] Evos 3.5mm 42mm Self Tap Cortex Screw Bone Sterile - [id number] Implanted:Qty: 1 on 04/29/2020 by Sarkis Melendez MD at [facility] Right: Tibia Hair & Nephew/Richco/O rtho [id number] / / Hair And Nephew/Richco/Ort ho [id number] Evos 3.5mm 70mm Self Tap Cortex Screw Bone Sterile - [id number] Implanted:Qty: 1 on 04/29/2020 by Sarkis Melendez MD at [facility] Right: Tibia Hair & Nephew/Richco/O rtho [id number] / / Hair And Nephew/Richco/Ort ho [id number] Evos 3.5mm 75mm Self Tap Cortex Screw Bone Sterile - [id number] Implanted:Qty: 1 on 04/29/2020 by Sarkis Melendez MD at [facility] Right: Tibia Hair & Nephew/Richco/O rtho [id number] / / Hair And Nephew/Richco/Ort ho [id number] Evos 71x10.9x2mm 32.5x2mm 4 Hole Low Profile Variable Angle Lock - [id number] Implanted:Qty: 1 on 04/29/2020 by Sarkis Melendez MD at [facility] Right: Tibia Hair & Nephew/Richco/O rtho [id number] / / Hair And Nephew/Richco/Ort ho [id number] Evos 3.5mm 65mm Self Tap Lock Screw Bone Sterile - [id number] Implanted:Qty: 1 on 04/29/2020 by Sarkis Melendez MD at [facility] Right: Tibia Hair & Nephew/Richco/O rtho [id number] / / Ar[employer]rex [employer] [id number] Corkscrew Ii Fiberwire 5.5mm 16.3mm 2 2 Full Thread [place] Suture - [id number] Implanted:Qty: 1 on 05/05/2020 by Sarkis Melendez MD at [facility] Right: Knee [employer]rex Inc 10/10/2024 [id number] / / [id number] Ar[employer]rex Inc Ar-4020c-07 Screw Fastthread Biocomposite Interference 7mm X 20mm - [id number] Implanted:Qty: 1 on 05/05/2020 by Sarkis Melendez MD at [facility] Right: Knee [employer] 12/11/2023 AR-4020C-0 7 / / [id number] Ar[employer] Inc Ar-4020c-07 Screw Fastthread Biocomposite Interference 7mm X 20mm - [id number] Implanted:Qty: 1 on 05/05/2020 by Sarkis Melendez MD at [facility] Right: Knee [employer] 11/11/2023 AR-4020C-0 7 / / [id number] [employer] [id number] Corkscrew Ii Fiberwire 5.5mm 16.3mm 2 2 Full Thread [place] Suture - [id number] Implanted:Qty: 1 on 05/05/2020 by Sarkis Melendez MD at [facility] Right: Knee [employer] 01/10/2025 [id number] / / [id number] [employer] [facility] [id number] 23cm 2 Bundle Frozen Graft Soft Tissue Semitendinosus Tendon - [id number] Implanted:Qty: 1 on 05/05/2020 by Sarkis Melendez MD at [facility] Right: Knee [employer] 05/11/2023 [id number] / / [id number] [employer] Ar-4020c-07 Screw Fastthread Biocomposite Interference 7mm X 20mm - [id number] Implanted:Qty: 1 on 05/05/2020 by Sarkis Melendez MD at [facility] Right: Knee [employer] 01/11/2024 AR-4020C-0 7 / / [id number] [employer] Ar-1915sf Corkscrew Fiberwire 3.5mm 12mm Self Tap Eyelet Handle Supervisor Roller Printing - [id number] Implanted:Qty: 1 on 05/05/2020 by Sarkis Melendez MD at [facility] Right: Knee [employer] 07/13/2023 AR-1915SF / / [id number] [employer] Ar-2324bcc Swivelock C 4.75mm 19.1mm Closed Eyelet Vent [place] Suture - [id number] Implanted:Qty: 1 on 05/05/2020 by Sarkis Melendez MD at [facility] [employer] [id number] 10/11/2023 AR-2324BC C / / [id number] [employer] Ar-2324bcc Swivelock C 4.75mm 19.1mm Closed Eyelet Vent [place] Suture - [id number] Implanted:Qty: 1 on 05/05/2020 by Sarkis Melendez MD at [facility] Right: Knee [employer] [id number] 08/11/2023 AR-2324BCC / / [id number] [employer] [id number] Corkscrew Ii Fiberwire 5.5mm 16.3mm 2 2 Full Thread [place] Suture - [id number] Implanted:Qty: 1 on 05/05/2020 by Sarkis Melendez MD at [facility] Right: Knee [employer] 01/10/2025 [id number] / / [id number] Explanted Type Area Electric Meter Repairer Helper Device Identifier Shelf Expiration Date Model / Serial / Lot [employer]aire [employer] Instruments [id number] Alfred .062in 9in Trocar Point One End Orthopedic Wire - [id number] Explanted:Qty: 2 on 04/29/2020 by Sarkis Melendez MD at [facility] Right: Tibia [employer] [id number] S / / Procedures Procedure Name Priority Date/Time Associated Diagnosis Comments HEPATITIS PANEL, ACUTE Routine 07/14/2022 4:29 PM FROG FARMER Screening for STD (sexually transmitted disease) from Last 3 Months or Most Recently Relevant to Health Maintenance Results * Hepatitis panel, acute (07/14/2022 4:29 PM FROG FARMER) Hep A IgM Nonreactive Nonreactive [facility] Comment: [...] Nonreactive [facility] HUFFMAN Blood 07/14/2022 4:29 PM FROG FARMER 07/14/2022 6:10 PM FROG FARMER Talisha [facility] LAB MICROBIOLOGY - GENER AL ORDERABLES Final Result [facility]AMMY HUFFMAN [address] [facility] Department [place] [address] from Last 3 Months or Most Recently Relevant to Health Maintenance Insurance [facility] BL CHOICE PRF PPO [place] IDPA Advance Directives For more information, please contact: [phone] * Full Code (Latest Code Status on File) Date Activated Date Inactivated Comments 04/29/2020 4:40 PM 04/30/2020 11:14 PM * Full Code Date Activated Date Inactivated Comments 04/29/2020 4:40 PM 04/29/2020 4:40 PM Care Teams Recreation Technician Relationship Specialty Start Date End Date Raymond Ding MD PCP - General Family Medicine 03/18/21
--- OUTSIDE RECORDS SUMMARY | 2024-12-19 22:29 | XMS_ITS | Referral Summary ---
Author Organization [facility] Address [address] [place] [address] Care Team Providers Care Meter Maker Name Role Phone Raymond Ding MD Primary Care Provider [phone] Allergies Active Allergy Reactions Criticality Noted Date [...] 05/31/2023 Assessment & Plan (05/31/2023 10:30 AM CIRCUIT DESIGNER): Rapid strep negative, throat culture pending Medrol dose pack Warm salt water gargles Tylenol (acetaminophen) or Advil/Motin (ibuprofen) as needed per package directions for aches/pains. 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 Continue current regimen with alprazolam BID PRN Assessment & Plan (12/30/2021 3:24 PM CDT): Stable, no changes. Continue current regimen with xanax prn Assessment & Plan (06/08/2021 12:44 PM CIRCUIT DESIGNER): Stable, no changes. Continue current regimen with [...] on file Legal Sex Male 7:38 PM CIRCUIT DESIGNER Gender Identity Not on file Sexual Orientation Not on file Last Filed Vital Signs Vital Sign Reading Time Taken Comments Blood Pressure 126/74 06/07/2023 3:42 PM CIRCUIT DESIGNER Pulse 70 06/07/2023 3:42 PM CIRCUIT DESIGNER Temperature 36.9 C (98.5 F) 06/07/2023 3:42 PM CIRCUIT DESIGNER Respiratory Rate 18 07/28/2023 4:01 PM CIRCUIT DESIGNER Oxygen Saturation 97% 06/07/2023 3:42 PM CIRCUIT DESIGNER Inhaled Oxygen Concentration - - Weight 81.6 kg (180 lb) 07/28/2023 4:01 PM CIRCUIT DESIGNER Height 180.3 cm (5' 11) 07/28/2023 4:01 PM CIRCUIT DESIGNER Body Mass Index 25.1 07/28/2023 4:01 PM CIRCUIT DESIGNER Plan of Treatment Not on file Medical Devices Implanted Type Area Education Liaison Device Identifier Shelf Expiration Date Model / Serial / Lot Hair & Nephew/Richco/Ort [id number] Screw Bone Evos L46mm Od3.5mm Cortex Self Tap Nonsterile - [id number] Implanted:Qty: 1 on 04/29/2020 by Sarkis Melendez MD at [facility] Right: Tibia Hair & Nephew/Richco/O rtho [id number] / / Hair And Nephew/Richco/Ort ho [id number] Evos 3.5mm 32mm Self Tap Cortex Screw Bone Sterile - [id number] Implanted:Qty: 1 on 04/29/2020 by Sarkis Melendez MD at [facility] Right: Tibia Hair & Nephew/Richco/O rtho [id number] / / Hair And Nephew/Richco/Ort ho [id number] Evos 3.5mm 42mm Self Tap Cortex Screw Bone Sterile - [id number] Implanted:Qty: 1 on 04/29/2020 by Sarkis Melendez MD at [facility] Right: Tibia Hair & Nephew/Richco/O rtho [id number] / / Hair And Nephew/Richco/Ort ho [id number] Evos 3.5mm 70mm Self Tap Cortex Screw Bone Sterile - [id number] Implanted:Qty: 1 on 04/29/2020 by Sarkis Melendez MD at [facility] Right: Tibia Hair & Nephew/Richco/O rtho [id number] / / Hair And Nephew/Richco/Ort ho [id number] Evos 3.5mm 75mm Self Tap Cortex Screw Bone Sterile - [id number] Implanted:Qty: 1 on 04/29/2020 by Sarkis Melendez MD at [facility] Right: Tibia Hair & Nephew/Richco/O rtho [id number] / / Hair And Nephew/Richco/Ort ho [id number] Evos 71x10.9x2mm 32.5x2mm 4 Hole Low Profile Variable Angle Lock - [id number] Implanted:Qty: 1 on 04/29/2020 by Sarkis Melendez MD at [facility] Right: Tib[place] Hair & Nephew/Richco/O rtho [id number] / / Hair And Nephew/Richco/Ort ho [id number] Evos 3.5mm 65mm Self Tap Lock Screw Bone Sterile - [id number] Implanted:Qty: 1 on 04/29/2020 by Sarkis Melendez MD at [facility] Right: Tib[place] Hair & Nephew/Richco/O rtho [id number] / / Ar[employer] [id number] Corkscrew Ii Fiberwire 5.5mm 16.3mm 2 2 Full Thread [place] Suture - [id number] Implanted:Qty: 1 on 05/05/2020 by Sarkis Melendez MD at [facility] Right: Knee [employer] 10/10/2024 [id number] / / [id number] Ar[employer] Inc Ar-4020c-07 Screw Fastthread Biocomposite Interference 7mm X 20mm - [id number] Implanted:Qty: 1 on 05/05/2020 by Sarkis Melendez MD at [facility] Right: Knee [employer] 12/11/2023 AR-4020C-0 7 / / [id number] Ar[employer] Ar-4020c-07 Screw Fastthread Biocomposite Interference 7mm X 20mm - [id number] Implanted:Qty: 1 on 05/05/2020 by Sarkis Melendez MD at [facility] Right: Knee [employer] 11/11/2023 AR-4020C-0 7 / / [id number] Ar[employer] [id number] Corkscrew Ii Fiberwire 5.5mm 16.3mm 2 2 Full Thread [place] Suture - [id number] Implanted:Qty: 1 on 05/05/2020 by Sarkis Melendez MD at [facility] Right: Knee [employer] 01/10/2025 [id number]-7 / / [id number] [employer] [id number] 23cm 2 Bundle Frozen Graft Soft Tissue Semitendinosus Tendon - [id number] Implanted:Qty: 1 on 05/05/2020 by Sarkis Melendez MD at [facility] Right: Knee [facility] 05/11/2023 [id number] / / [id number] [employer] Ar-4020c-07 Screw Fastthread Biocomposite Interference 7mm X 20mm - [id number] Implanted:Qty: 1 on 05/05/2020 by Sarkis Melendez MD at [facility] Right: Knee [employer] 01/11/2024 AR-4020C-0 7 / / [id number] [employer] Ar-1915sf Corkscrew Fiberwire 3.5mm 12mm Self Tap Eyelet Handle Senior Java J2Ee Developer - [id number] Implanted:Qty: 1 on 05/05/2020 by Sarkis Melendez MD at [facility] Right: Knee [employer] 07/13/2023 AR-1915SF / / [id number] [employer] Ar-2324bcc Swivelock C 4.75mm 19.1mm Closed Eyelet Vent [place] Suture - [id number] Implanted:Qty: 1 on 05/05/2020 by Sarkis Melendez MD at [facility] [employer] [id number] 10/11/2023 AR-2324BC C / / [id number] [employer] Ar-2324bcc Swivelock C 4.75mm 19.1mm Closed Eyelet Vent [place] Suture - [id number] Implanted:Qty: 1 on 05/05/2020 by Sarkis Melendez MD at [facility] Right: Knee [employer] [id number] 08/11/2023 AR-2324BCC / / [id number] Ar[employer] [id number] Corkscrew Ii Fiberwire 5.5mm 16.3mm 2 2 Full Thread [place] Suture - [id number] Implanted:Qty: 1 on 05/05/2020 by Sarkis Melendez MD at [facility] Right: Knee [employer] 01/10/2025 [id number] / / [id number] Explanted Type Area Education Liaison Device Identifier Shelf Expiration Date Model / Serial / Lot Inventalatoraire Surgical Instruments [id number] Alfred .062in 9in Trocar Point One End Orthopedic Wire - [id number] Explanted:Qty: 2 on 04/29/2020 by Sarkis Melendez MD at [facility] Right: Tibia [employer] [id number] S / / Procedures Procedure Name Priority Date/Time Associated Diagnosis Comments HEPATITIS PANEL, ACUTE Routine 07/14/2022 4:29 PM CIRCUIT DESIGNER Screening for STD (sexually transmitted disease) from Last 3 Months or Most Recently Relevant to Health Maintenance Results * Hepatitis panel, acute (07/14/2022 4:29 PM CIRCUIT DESIGNER) Hep A IgM Nonreactive Nonreactive [facility] Comment: Interpretive Data: If Hep A IgM Ab is reported as Equivocal, a new sample should be drawn in two weeks for testing. Current interpretive data was last revised on 19. Hep B core IgM Nonreactive Nonreactive [facility] Comment: Interpretive Data If HepB Core IgM Ab is reported as Equivocal, a new sample should be drawn in two weeks for testing. Current interpretive data was last revised on 19. Hep C Ab Nonreactive Nonreactive [facility] Comment: Interpretive Data Nonreactive: Antibodies to HCV [...] last revised on 2019. HepBsAg Nonreactive Nonreactive [facility] Blood 07/14/2022 4:29 PM CIRCUIT DESIGNER 07/14/2022 6:10 PM CIRCUIT DESIGNER Talisha GRAV[facility] LAB MICROBIOLOGY - GENER AL ORDERABLES Final Result [facility] [address] [facility] Department [place] [address] from Last 3 Months or Most Recently Relevant to Health Maintenance Insurance [facility] BL CHOICE PRF PPO [place] IDPA Advance Directives For more information, please contact: [phone] * Full Code (Latest Code Status on File) Date Activated Date Inactivated Comments 04/29/2020 4:40 PM 04/30/2020 11:14 PM * Full Code Date Activated Date Inactivated Comments 04/29/2020 4:40 PM 04/29/2020 4:40 PM Care Teams Meter Maker Relationship Specialty Start Date End Date Raymond Ding MD PCP - General Family Medicine 03/18/21
[2024-12-19 22:31] VITALS: BP 149/90; PULSE 75; RESP 18; TEMP 36.1; O2SAT 100
--- NOTE | 2024-12-20 02:25 | ED_ITS ---
HPI - General Adult General Chief complaint: Skin/Abscess/Foreign Body Stated complaint: generalized rash Time Seen by Provider: 12/20/24 02:02 History of Present Illness HPI narrative: Patient is a 29-year-old male who presents to the emergency department this evening complaining of worsening skin rash. Patient was seen our facility approximately 1 week ago due to concern for possible scabies versus contact dermatitis/poison oak. He was placed on a per masses in cream with no impr ovement of his symptoms. Patient feels as though the rash is spreading to further places. He has concern for poison william as he does spend a lot of time working outside. States that that rash is itchy. He has been using some chamomile lotion with minimal improvement. He has also been taking Benadryl. Denies any additional symptoms or concerns at this time. Related Data Allergies Allergy/AdvReac Type Severity Reaction Status Date / Time pollen extracts Allergy Mild Difficulty Verified 12/19/24 22:35 Breathing Penicillins AdvReac Intermediate Dizziness Verified 12/19/24 22:35 Review of Systems Review of Systems: All systems are reviewed and are negative unless stated otherwise in the HPI. [facility] Past Medical History Medical History Patient denies significant medical history Surgical History Surgical History S/P nasal surgery Family History Family History Other Diabetes mellitus Family history of cardiovascular disease Family history of malignant neoplasm Hypertension Social History Social History Smoking status: Current every day smoker Alcohol intake: current Substance use: current Substance use type: marijuana Gender identity (if verbalized by the patient): Male Sexual Orientation (if Verbalized by the Patient): Straight or Heterosexual Exam Narrative: General: Alert, awake, afebrile, in no acute distress. HEENT: PERRL, no rhinorrhea, no post nasal drip, oropharynx clear. Neck: Trachea midline, no JVD, no lymphadenopathy. Cardiovascular: Regular rate and rhythm, no murmurs, rubs or gallops, no peripheral edema. Respiratory: Clear to auscultation bilaterally, no tachypnea, no wheezing, no rhonchi, no rubs, no respiratory distress. Abdomen: Soft, nontender, nondistended, no rebound, no guarding, no peritoneal signs. Musculoskeletal: No joint swelling or deformity, normal muscle tone. Skin: Skin eruptions/rash involving the bilateral upper and lower extremity, nodular in appearance, no evidence of cellulitis or abscess. Psychiatric: Alert and oriented, normal behavior and judgment for situation. Neurological: Alert and oriented to person, place, and time. Follows all commands. No focal deficits, speech is clear and fluent. Course Vital Signs Vital signs: Vital Signs Temperature 97.0 F L 12/19/24 22: Pulse Rate 75 12/19/24 22:31 Respiratory Rate 18 12/19/24 22: Blood Pressure 149/90 H 12/19/24 22:31 Pulse Oximetry 100 12/19/24 22:31 Oxygen Delivery Room Air 12/19/24 22:31 Temperature 97.0 F L 12/19/24 22: Pulse Rate 75 12/19/24 22:31 Respiratory Rate 18 12/19/24 22:31 Blood Pressure 149/90 H 12/19/24 22:31 Pulse Oximetry 100 12/19/24 22:31 Oxygen Delivery Room Air 12/19/24 22:31 Medical Decision Making MDM Narrative Medical decision making narrative: The patient was evaluated by myself in the emergency department. History is obtained from patient who is an independent historian and physical exam was performed. External medical records were reviewed at this time. Patient was administered 20 mg of oral prednisone was informed that he will be placed on a steroid taper and he will need to follow-up with fast food services manager for further evaluation of this rash. Patient was also administered 50 mg of oral Benadryl. Differential diagnosis considerations include scabies, contact dermatitis such as poison william, cellulitis, insect bite. Comorbidities impacting this visit include none. I have evaluated and discussed social determinants of health with the patient that could potentially impact subsequent diagnosis and treatment plans. On repeat assessment of the patient, reevaluation revealed that the patient is doing well and is in no acute distress. Patient symptoms have improved since he arrived to our emergency department. Repeat vital signs were all reviewed and noted to be stable. Differential diagnosis and treatment plan were discussed with the patient at bedside. Patient agrees with discussion and after shared medical decision making agrees with discharge. All questions were answered to the patient's satisfaction. Patient will follow up with his PCP in 3-5 days. Was provided with information for local dermatology clinic to follow-up. Patient was provided with strict return precautions and instructed to return to the emergency department if any new or worsening symptoms develop. The patient was discharged in stable condition. Vital Signs Vital Signs: Vital Signs Temperature 97.0 F L 12/19/24 22:31 Pulse Rate 75 12/19/24 22:31 Respiratory Rate 18 12/19/24 22:31 Blood Pressure 149/90 H 12/19/24 22:31 Pulse Oximetry 100 12/19/24 22:31 Oxygen Delivery Room Air 12/19/24 22:31 Temperature 97.0 F L 12/19/24 22:31 Pulse Rate 75 12/19/24 22:31 Respiratory Rate 18 12/19/24 22:31 Blood Pressure 149/90 H 12/19/24 22:31 Pulse Oximetry 100 12/19/24 22:31 Oxygen Delivery Room Air 12/19/24 22:31 Discharge Plan Discharge Clinical Impression: Contact dermatitis Patient Disposition: Home Condition: Stable Instructions: Antibiotic Form, Contact Dermatitis (ED) Additional Instructions: Please follow-up with your family doctor within the next 3-5 days regarding your rash/dermatitis. You may need to be referred to a fast food services manager/specialist for further evaluation. Return to the ED if any new or worsening symptoms develop. Moving your provided with printout contact information of a local dermatology clinic instructed to call to set up a follow-up appointment. Patient Language: Beninese Prescriptions: New prednisone 10 mg tablets,dose pack See Rx Instructions .ROUTE .COMPLEX Qty: 21 0RF Rx Instructions: orally per package directions No Action doxycycline hyclate 100 mg capsule 100 mg PO DAILY 7 Days Qty: 7 0RF fluticasone propionate [Allergy Relief (fluticasone)] 50 mcg/actuation spray,suspension 1 spray intranasal Q12H Qty: 16 0RF Rx Instructions: administer into each nostril guaifenesin [Mucinex] 1,200 mg tablet extended release 12hr 1,200 mg PO Q12H Qty: 20 0RF fluticasone propionate 50 mcg/actuation spray,suspension 1 spray intranasal Q12H Qty: 16 0RF Rx Instructions: administer into each nostril guaifenesin 1,200 mg tablet extended release 12hr 1,200 mg PO Q12H Qty: 14 0RF permethrin 5 % cream 1 applic topical ONCE Qty: 60 0RF Rx Instructions: leave on for 8 to14 hrs before washing off Follow-up/Referrals: PHYSICIAN,TORCH SHEARER [Primary Care Provider] - Bassem Davenport MD [Physician] - 3 Days Time of Disposition: 02:09
--- OUTSIDE RECORDS SUMMARY | 2024-12-20 02:33 | XMS_ITS | Referral Summary ---
Author Organization [facility] Address [address] [place] [address] Care Team Providers Care Air Conditioning Mechanic Industrial Name Role Phone Raymond Ding MD Primary Care Provider [phone] Allergies Active Allergy Reactions Criticality Noted Date [...] 05/31/2023 Assessment & Plan (05/31/2023 10:30 AM LEGAL MEDIATOR): Rapid strep negative, throat culture pending Medrol dose pack Warm salt water gargles Tylenol (acetaminophen) or Advil/Motin (ibuprofen) as needed per package directions for aches/pains. 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 Continue current regimen with alprazolam BID PRN Assessment & Plan (12/30/2021 3:24 PM CDT): Stable, no changes. Continue current regimen with xanax prn Assessment & Plan (06/08/2021 12:44 PM LEGAL MEDIATOR): Stable, no changes. Continue current regimen with [...] on file Legal Sex Male 7:38 PM LEGAL MEDIATOR Gender Identity Not on file Sexual Orientation Not on file Last Filed Vital Signs Vital Sign Reading Time Taken Comments Blood Pressure 126/74 06/07/2023 3:42 PM LEGAL MEDIATOR Pulse 70 06/07/2023 3:42 PM LEGAL MEDIATOR Temperature 36.9 C (98.5 F) 06/07/2023 3:42 PM LEGAL MEDIATOR Respiratory Rate 18 07/28/2023 4:01 PM LEGAL MEDIATOR Oxygen Saturation 97% 06/07/2023 3:42 PM LEGAL MEDIATOR Inhaled Oxygen Concentration - - Weight 81.6 kg (180 lb) 07/28/2023 4:01 PM LEGAL MEDIATOR Height 180.3 cm (5' 11) 07/28/2023 4:01 PM LEGAL MEDIATOR Body Mass Index 25.1 07/28/2023 4:01 PM LEGAL MEDIATOR Plan of Treatment Not on file Medical Devices Implanted Type Area Personal Support Worker Device Identifier Shelf Expiration Date Model / Serial / Lot Hair & Nephew/Richco/Ort [id number] Screw Bone Evos L46mm Od3.5mm Cortex Self Tap Nonsterile - [id number] Implanted:Qty: 1 on 04/29/2020 by Sarkis Melendez MD at [facility] Right: Tibia Hair & Nephew/Richco/O rtho [id number] / / Hair And Nephew/Richco/Ort ho [id number] Evos 3.5mm 32mm Self Tap Cortex Screw Bone Sterile - [id number] Implanted:Qty: 1 on 04/29/2020 by Sarkis Melendez MD at [facility] Right: Tibia Hair & Nephew/Richco/O rtho [id number] / / Hair And Nephew/Richco/Ort ho [id number] Evos 3.5mm 42mm Self Tap Cortex Screw Bone Sterile - [id number] Implanted:Qty: 1 on 04/29/2020 by Sarkis Melendez MD at [facility] Right: Tibia Hair & Nephew/Richco/O rtho [id number] / / Hair And Nephew/Richco/Ort ho [id number] Evos 3.5mm 70mm Self Tap Cortex Screw Bone Sterile - [id number] Implanted:Qty: 1 on 04/29/2020 by Sarkis Melendez MD at [facility] Right: Tibia Hair & Nephew/Richco/O rtho [id number] / / Hair And Nephew/Richco/Ort ho [id number] Evos 3.5mm 75mm Self Tap Cortex Screw Bone Sterile - [id number] Implanted:Qty: 1 on 04/29/2020 by Sarkis Melendez MD at [facility] Right: Tibia Hair & Nephew/Richco/O rtho [id number] / / Hair And Nephew/Richco/Ort ho [id number] Evos 71x10.9x2mm 32.5x2mm 4 Hole Low Profile Variable Angle Lock - [id number] Implanted:Qty: 1 on 04/29/2020 by Sarkis Melendez MD at [facility] Right: Tibia Hair & Nephew/Richco/O rtho [id number] / / Hair And Nephew/Richco/Ort ho [id number] Evos 3.5mm 65mm Self Tap Lock Screw Bone Sterile - [id number] Implanted:Qty: 1 on 04/29/2020 by Sarkis Melendez MD at [facility] Right: Tibia Hair & Nephew/Richco/O rtho [id number] / / Ar[employer]rex [employer] [id number] Corkscrew Ii Fiberwire 5.5mm 16.3mm 2 2 Full Thread Warfield Suture - [id number] Implanted:Qty: 1 on 05/05/2020 by Sarkis Melendez MD at [facility] Right: Knee Ar[employer]rex Inc 10/10/2024 [id number] / / [id number] Arthrex Inc Ar-4020c-07 Screw Fastthread Biocomposite Interference 7mm X 20mm - [id number] Implanted:Qty: 1 on 05/05/2020 by Sarkis Melendez MD at [facility] Right: Knee [employer] 12/11/2023 AR-4020C-0 7 / / [id number] Ar[employer]rex Inc Ar-4020c-07 Screw Fastthread Biocomposite Interference 7mm X 20mm - [id number] Implanted:Qty: 1 on 05/05/2020 by Sarkis Melendez MD at [facility] Right: Knee [employer] 11/11/2023 AR-4020C-0 7 / / [id number] Ar[employer] [id number] Corkscrew Ii Fiberwire 5.5mm 16.3mm 2 2 Full Thread Warfield Suture - [id number] Implanted:Qty: 1 on 05/05/2020 by Sarkis Melendez MD at [facility] Right: Knee [employer] 01/10/2025 [id number] / / [id number] [facility] [id number] 23cm 2 Bundle Frozen Graft Soft Tissue Semitendinosus Tendon - [id number] Implanted:Qty: 1 on 05/05/2020 by Sarkis Melendez MD at [facility] Right: Knee [facility] 05/11/2023 [id number] / / [id number] Ar[employer] Ar-4020c-07 Screw Fastthread Biocomposite Interference 7mm X 20mm - [id number] Implanted:Qty: 1 on 05/05/2020 by Sarkis Melendez MD at [facility] Right: Knee [employer] 01/11/2024 AR-4020C-0 7 / / [id number] Ar[employer] Ar-1915sf Corkscrew Fiberwire 3.5mm 12mm Self Tap Eyelet Handle Jewel Bearing Facer - [id number] Implanted:Qty: 1 on 05/05/2020 by Sarkis Melendez MD at [facility] Right: Knee [employer] 07/13/2023 AR-1915SF / / [id number] [employer] Ar-2324bcc Swivelock C 4.75mm 19.1mm Closed Eyelet Vent Warfield Suture - [id number] Implanted:Qty: 1 on 05/05/2020 by Sarkis Melendez MD at [facility] [employer] [id number] 10/11/2023 AR-2324BC C / / [id number] [employer] Ar-2324bcc Swivelock C 4.75mm 19.1mm Closed Eyelet Vent Warfield Suture - [id number] Implanted:Qty: 1 on 05/05/2020 by Sarkis Melendez MD at [facility] Right: Knee [employer] [id number] 08/11/2023 AR-2324BCC / / [id number] [employer] [id number] Corkscrew Ii Fiberwire 5.5mm 16.3mm 2 2 Full Thread Warfield Suture - [id number] Implanted:Qty: 1 on 05/05/2020 by Sarkis Melendez MD at [facility] Right: Knee [employer] 01/10/2025 [id number] / / [id number] Explanted Type Area Personal Support Worker Device Identifier Shelf Expiration Date Model / Serial / Lot My Dentistaire Surgical Instruments [id number] Alfred .062in 9in Trocar Point One End Orthopedic Wire - [id number] Explanted:Qty: 2 on 04/29/2020 by Sariks Melendez MD at [facility] Right: Tibia [employer]aire [employer] Instruments [id number] S / / Procedures Procedure Name Priority Date/Time Associated Diagnosis Comments HEPATITIS PANEL, ACUTE Routine 07/14/2022 4:29 PM LEGAL MEDIATOR Screening for STD (sexually transmitted disease) from Last 3 Months or Most Recently Relevant to Health Maintenance Results * Hepatitis panel, acute (07/14/2022 4:29 PM LEGAL MEDIATOR) Hep A IgM Nonreactive Nonreactive [facility] Comment: Interpretive Data: If Hep A IgM Ab is reported as Equivocal, a new sample should be drawn in two weeks for testing. Current interpretive data was last revised on 19. Hep B core IgM Nonreactive Nonreactive [facility] Comment: Interpretive Data If HepB Core IgM Ab is reported as Equivocal, a new sample should be drawn in two weeks for testing. Current interpretive data was last revised on 19. Hep C Ab Nonreactive Nonreactive [facility] Comment: Interpretive Data Nonreactive: Antibodies to [...] last revised on 2019. HepBsAg Nonreactive Nonreactive [facility] Blood 07/14/2022 4:29 PM LEGAL MEDIATOR 07/14/2022 6:10 PM LEGAL MEDIATOR [facility] MICROBIOLOGY - GENER AL ORDERABLES Final Result [facility] [address] [facility] Department [place] [address] from Last 3 Months or Most Recently Relevant to Health Maintenance Insurance [facility] BL CHOICE [place] [address] Advance Directives For more information, please contact: [phone] * Full Code (Latest Code Status on File) Date Activated Date Inactivated Comments 04/29/2020 4:40 PM 04/30/2020 11:14 PM * Full Code Date Activated Date Inactivated Comments 04/29/2020 4:40 PM 04/29/2020 4:40 PM Care Teams Air Conditioning Mechanic Industrial Relationship Specialty Start Date End Date Raymond Ding MD PCP - General Family Medicine 03/18/21
--- OUTSIDE RECORDS SUMMARY | 2024-12-20 02:33 | XMS_ITS | Clinical Summary ---
Author Organization [facility] Address [address] [place] [address] Care Team Providers Care Road Cleaner Name Role Phone Raymond Ding MD Primary Care Provider [phone] Allergies Active Allergy Reactions Criticality Noted Date [...] 05/31/2023 Assessment & Plan (05/31/2023 10:30 AM OFFICE SERVICES ASSISTANT): Rapid strep negative, throat culture pending Medrol dose pack Warm salt water gargles Tylenol (acetaminophen) or Advil/Motin (ibuprofen) as needed per package directions for aches/pains. 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 Continue current regimen with alprazolam BID PRN Assessment & Plan (12/30/2021 3:24 PM CDT): Stable, no changes. Continue current regimen with xanax prn Assessment & Plan (06/08/2021 12:44 PM OFFICE SERVICES ASSISTANT): Stable, no changes. Continue current regimen with [...] on file Legal Sex Male 7:38 PM OFFICE SERVICES ASSISTANT Gender Identity Not on file Sexual Orientation Not on file Obstetrics History Last Filed Vital Signs Vital Sign Reading Time Taken Comments Blood Pressure 126/74 06/07/2023 3:42 PM OFFICE SERVICES ASSISTANT Pulse 70 06/07/2023 3:42 PM OFFICE SERVICES ASSISTANT Temperature 36.9 C (98.5 F) 06/07/2023 3:42 PM OFFICE SERVICES ASSISTANT Respiratory Rate 18 07/28/2023 4:01 PM OFFICE SERVICES ASSISTANT Oxygen Saturation 97% 06/07/2023 3:42 PM OFFICE SERVICES ASSISTANT Inhaled Oxygen Concentration - - Weight 81.6 kg (180 lb) 07/28/2023 4:01 PM OFFICE SERVICES ASSISTANT Height 180.3 cm (5' 11) 07/28/2023 4:01 PM OFFICE SERVICES ASSISTANT Body Mass Index 25.1 07/28/2023 4:01 PM OFFICE SERVICES ASSISTANT Plan of Treatment Health Maintenance Due Date [...] this topic Medical Devices Implanted Type Area Kitchen Assistant Device Identifier Shelf Expiration Date Model / Serial / Lot Hair & Nephew/Richco/Ort ho [id number] Screw Bone Evos L46mm Od3.5mm Cortex Self Tap Nonsterile - [id number] Implanted:Qty: 1 on 04/29/2020 by Sarkis Melendez MD at [facility] Right: Tibia Hair & Nephew/Richco/O rtho [id number] / / Hair And Nephew/Richco/Ort ho [id number] Evos 3.5mm 32mm Self Tap Cortex Screw Bone Sterile - [id number] Implanted:Qty: 1 on 04/29/2020 by Sarkis Melendez MD at [facility] Right: Tibia Hair & Nephew/Richco/O rtho [id number] / / Hair And Nephew/Richco/Ort ho [id number] Evos 3.5mm 42mm Self Tap Cortex Screw Bone Sterile - [id number] Implanted:Qty: 1 on 04/29/2020 by Sarkis Melendez MD at [facility] Right: Tibia Hair & Nephew/Richco/O rtho [id number] / / Hair And Nephew/Richco/Ort ho [id number] Evos 3.5mm 70mm Self Tap Cortex Screw Bone Sterile - [id number] Implanted:Qty: 1 on 04/29/2020 by Sarkis Melendez MD at [facility] Right: Tibia Hair & Nephew/Richco/O rtho [id number] / / Hair And Nephew/Richco/Ort ho [id number] Evos 3.5mm 75mm Self Tap Cortex Screw Bone Sterile - [id number] Implanted:Qty: 1 on 04/29/2020 by Sarkis Melendez MD at [facility] Right: Tibia Hair & Nephew/Richco/O rtho [id number] / / Hair And Nephew/Richco/Ort ho [id number] Evos 71x10.9x2mm 32.5x2mm 4 Hole Low Profile Variable Angle Lock - [id number] Implanted:Qty: 1 on 04/29/2020 by Sarkis Melendez MD at [facility] Right: Tibia Hair & Nephew/Richco/O rtho [id number] / / Hair And Nephew/Richco/Ort ho [id number] Evos 3.5mm 65mm Self Tap Lock Screw Bone Sterile - [id number] Implanted:Qty: 1 on 04/29/2020 by Sarkis Melendez MD at [facility] Right: Tibia Hair & Nephew/Richco/O rtho [id number] / / [employer] [id number] Corkscrew Ii Fiberwire 5.5mm 16.3mm 2 2 Full Thread [place] Suture - [id number] Implanted:Qty: 1 on 05/05/2020 by Sarkis Melendez MD at [facility] Right: Knee [employer] 10/10/2024 [id number] / / [id number] Ar[employer] Ar-4020c-07 Screw Fastthread Biocomposite Interference 7mm X 20mm - [id number] Implanted:Qty: 1 on 05/05/2020 by Sarkis Melendez MD at [facility] Right: Knee [employer] 12/11/2023 AR-4020C-0 7 / / [id number] [employer] Ar-4020c-07 Screw Fastthread Biocomposite Interference 7mm X 20mm - [id number] Implanted:Qty: 1 on 05/05/2020 by Sarkis Melendez MD at [facility] Right: Knee [employer] 11/11/2023 AR-4020C-0 7 / / [id number] [employer] [id number] Corkscrew Ii Fiberwire 5.5mm 16.3mm 2 2 Full Thread [place] Suture - [id number] Implanted:Qty: 1 on 05/05/2020 by Sarkis Melendez MD at [facility] Right: Knee [employer] 01/10/2025 [id number]-0 / / [id number] [facility] [id number] 23cm 2 Bundle Frozen Graft Soft Tissue Semitendinosus Tendon - [id number] Implanted:Qty: 1 on 05/05/2020 by Sarkis Melendez MD at [facility] Right: Knee [facility] 05/11/2023 [id number] / / [id number] [employer] Ar-4020c-07 Screw Fastthread Biocomposite Interference 7mm X 20mm - [id number] Implanted:Qty: 1 on 05/05/2020 by Sarkis Melendez MD at [facility] Right: Knee [employer] 01/11/2024 AR-4020C-0 7 / / [id number] [employer] Ar-1915sf Corkscrew Fiberwire 3.5mm 12mm Self Tap Eyelet Handle Belt Buckle Maker - [id number] Implanted:Qty: 1 on 05/05/2020 by Sarkis Melendez MD at [facility] Right: Knee [employer] 07/13/2023 AR-1915SF / / [id number] [employer] Ar-2324bcc Swivelock C 4.75mm 19.1mm Closed Eyelet Vent [place] Suture - [id number] Implanted:Qty: 1 on 05/05/2020 by Sarkis Melendez MD at [facility] [employer] [id number] 10/11/2023 AR-2324BC C / / [id number] [employer] Ar-2324bcc Swivelock C 4.75mm 19.1mm Closed Eyelet Vent [place] Suture - [id number] Implanted:Qty: 1 on 05/05/2020 by Sarkis Melendez MD at [facility] Right: Knee [employer] [id number] 08/11/2023 AR-2324BCC / / [id number] [employer] [id number] Corkscrew Ii Fiberwire 5.5mm 16.3mm 2 2 Full Thread [place] Suture - [id number] Implanted:Qty: 1 on 05/05/2020 by Sarkis Melendez MD at [facility] Right: Knee [employer] 01/10/2025 [id number] / / [id number] Explanted Type Area Kitchen Assistant Device Identifier Shelf Expiration Date Model / Serial / Lot [employer]aire Surgical Instruments [id number] Alfred .062in 9in Trocar Point One End Orthopedic Wire - [id number] Explanted:Qty: 2 on 04/29/2020 by Sarkis Melendez MD at [facility] Right: Tibia [employer] [id number] S / / Procedures Procedure Name Priority Date/Time Associated Diagnosis Comments HEPATITIS PANEL, ACUTE Routine 07/14/2022 4:29 PM OFFICE SERVICES ASSISTANT Screening for STD (sexually transmitted disease) from Last 3 Months or Most Recently Relevant to Health Maintenance Results * Hepatitis panel, acute (07/14/2022 4:29 PM OFFICE SERVICES ASSISTANT) Hep A IgM Nonreactive Nonreactive [facility] Comment: [...] Nonreactive [facility] Blood 07/14/2022 4:29 PM OFFICE SERVICES ASSISTANT 07/14/2022 6:10 PM OFFICE SERVICES ASSISTANT Talisha [facility] MICROBIOLOGY - GENER AL ORDERABLES Final Result [facility] [address] [facility] Department [place] [address] from Last 3 Months or Most Recently Relevant to Health Maintenance Insurance [facility] BL CHOICE PRF PPO [place] IDPA Advance Directives For more information, please contact: [phone] * Full Code (Latest Code Status on File) Date Activated Date Inactivated Comments 04/29/2020 4:40 PM 04/30/2020 11:14 PM * Full Code Date Activated Date Inactivated Comments 04/29/2020 4:40 PM 04/29/2020 4:[address] Cleaner Relationship Specialty Start Date End Date Raymond Ding MD PCP - General Family Medicine 03/18/21
--- OUTSIDE RECORDS SUMMARY | 2024-12-20 02:33 | XMS_ITS | Clinical Summary ---
Author Organization [facility] Address [address] [place] [id number] Care Team Providers Care Vp Publisher Development Name Role Phone Unavailable Primary Care Provider [...]
[2024-12-20 02:49] VITALS: BP 138/79; PULSE 71; RESP 16; O2SAT 98
[2024-12-20] MEDS: diphenhydrAMINE HCl CAP 25 MG CAPSULE 50 MG PO (02:58)
== END 2024-12-20 02:59 | disposition home or self-care (01) ==
PROVIDERS: Emergency Provider Emergency Medicine
DX: L23.9 Allergic contact dermatitis, unspecified cause (principal); F17.210 Nicotine dependence, cigarettes, uncomplicated
CPT/HCPCS: 99283; A9270; J7512